=== PATIENT | female | born 1965 | race Caucasian/White ===

== ENCOUNTER → 2019-07-29 | Outpatient (REF) | payer SELFPAY ==
[2019-07-29 17:50] LABS: APPEARANCE, URINE CLOUDY (CLEAR); BACTERIA, URINE AUTO NEGATIVE (NEGATIVE); BILIRUBIN, URINE AUTO NEGATIVE (NEGATIVE); BLOOD, URINE BLOOD NEGATIVE (NEGATIVE); COLOR, URINE YELLOW (YELLOW); GLUCOSE, URINE (UA) AUTO NEGATIVE (NEGATIVE); KETONE, URINE AUTO NEGATIVE (NEGATIVE); LEUKOCYTE ESTERASE, URINE AUTO 3+ (NEGATIVE); NITRITE, URINE AUTO NEGATIVE (NEGATIVE); PROTEIN, URINE AUTO 1+ mg/dL (NEGATIVE); RBC, URINE AUTO 19 /HPF (0-3); SPECIFIC GRAVITY URINE AUTO 1.015 (1.002-1.035); SQUAMOUS EPITHELIAL CELL UR AU 0 /HPF (0-6); WBC, URINE AUTO TNTC /HPF (0-3)
== END ==
LOC: M LAB REF 17:07
PROVIDERS: ATTEND Physician Assistant Medical
DX: N39.0 Urinary tract infection, site not specified (principal)

== ENCOUNTER → 2019-09-09 | Outpatient (REF) | payer SELFPAY | LOC: M LAB REF 11:22 | PROVIDERS: ATTEND Physician Assistant Medical | DX: Z11.59 Encounter for screening for other viral diseases (principal) ==

== ENCOUNTER 2019-10-17 13:47 | Inpatient (IN) | payer OTHER, SELFPAY ==
[2019-10-17] VITALS (11 sets, daily range): BP systolic 85–135; BP diastolic 50–60
[~2019-10-17] VITALS: Ht 157.5 cm; Wt 81.0 kg
[2019-10-17] MEDS ORDERED: PRIL20TA2 PO (13:58)
[2019-10-17] MEDS ORDERED: NS 1,000 ML IV SCH (14:05)
[2019-10-17] MEDS ORDERED: FUROSEMIDE 40MG/4ML VIAL (J1940) IV ONE (14:15)
[2019-10-17 14:43] LABS: BASO % 0.1 % (0.0-1.0); EOS # 0.2 10^3/uL (0.0-0.5); EOS % 2.6 % (0.0-3.0); LYMPH # 1.4 10^3/uL (1.5-5.0); LYMPH % 16.4 % (24.0-44.0); MEAN CORPUSCULAR HEMOGLOBIN 15.1 pg (27.0-33.0); MEAN CORPUSCULAR HGB CONC 22.6 g/dl (32.0-36.5); MEAN CORPUSCULAR VOLUME 66.9 fl (80.0-96.0); MONO # 0.9 10^3/uL (0.0-0.8); MONO % 10.3 % (0.0-5.0); NEUTROPHILS # 5.9 10^3/uL (1.5-8.5); NEUTROPHILS % 69.9 % (36.0-66.0); PLATELET COUNT, AUTOMATED 243 10^3/uL (150-450); RED BLOOD COUNT 1.72 10^6/uL (4.00-5.40); WHITE BLOOD COUNT 8.4 10^3/uL (4.0-10.0)
[2019-10-17 14:52] LABS: HEMATOCRIT 11.5 % (36.0-47.0); HEMOGLOBIN 2.6 g/dl (12.0-15.5)
[2019-10-17 14:53] LABS: INR 1.6; PROTHROMBIN TIME 18.8 SECONDS (11.8-14.0)
[2019-10-17 14:58] LABS: ALBUMIN 3.1 GM/DL (3.2-5.2); ALT/SGPT 9 U/L (12-78); BILIRUBIN,DIRECT 0.5 MG/DL (0.0-0.2); BILIRUBIN,TOTAL 0.9 MG/DL (0.2-1.0); BLOOD UREA NITROGEN 27 MG/DL (7-18); CALCIUM LEVEL 8.6 MG/DL (8.5-10.1); CARBON DIOXIDE LEVEL 19 MEQ/L (21-32); CHLORIDE LEVEL 108 MEQ/L (98-107); CK-MB VALUE MASS < 1.0 NG/ML (<3.6); CPK CREATINE PHOSPHOKINASE 42 U/L (26-192); GLOMERULAR FILTRATION RATE 29.1 (>51); GLUCOSE, FASTING 120 MG/DL (70-100); MB/CK RELATIVE INDEX 2.38 (< OR =4); NT-PRO BNP 1368 PG/ML (<125); POTASSIUM SERUM 4.4 MEQ/L (3.5-5.1); SODIUM LEVEL 138 MEQ/L (136-145); TOTAL PROTEIN 7.5 GM/DL (6.4-8.2); TROPONIN I < 0.02 NG/ML (< 0.10)
--- NOTE | 2019-10-17 15:41 | REP ---
CHEST, SINGLE VIEW: Single view of the chest is performed. There is mild cardiomegaly. There is no acute infiltrate. The mediastinal silhouette is unchanged. IMPRESSION: No acute infiltrate. Mild cardiomegaly. Electronically Signed by Allan Barcenas MD 10/20/2019 09:44 A
[2019-10-17] MEDS ORDERED: THERTAB52 PO (15:47)
[2019-10-17] MEDS ORDERED: IBUP200T45 PO (15:47)
--- NOTE | 2019-10-17 17:08 | REP ---
CT ABDOMEN/PELVIS WITHOUT CONTRAST: CT abdomen/pelvis performed without oral or IV contrast. Sagittal and coronal reconstruction images are performed. The visualized lung bases, the vasculature appears somewhat engorged. There are small bilateral pleural effusions. There is mild cardiomegaly. There is a small pericardial effusion. The liver is grossly unremarkable. The patient has had a prior cholecystectomy with metallic clips in the gallbladder fossa. Spleen is grossly unremarkable. It is normal in size. Adrenal glands are normal. No gross pancreatic abnormality is seen. There is no hydroureteronephrosis bilaterally and no definite renal calculus. There is a cyst in the mid right kidney measuring 2.8 cm. There is no abdominal aortic aneurysm with mild atherosclerotic calcification. There is no adenopathy. There is no free air. I see no bowel wall thickening. The appendix is normal. There is mild free fluid scattered throughout the pelvis. Urinary bladder is not well distended and not well evaluated. No pelvic mass is seen. There are degenerative changes of the spine. There is a small right femoral hernia containing fat. There is some mild scattered soft tissue edema superficially. IMPRESSION: Mild cardiomegaly. Vascular congestion. Small pleural effusions bilaterally as well as small pericardial effusion. Mild free fluid in the pelvis. No evidence of bowel obstruction or free air. No evidence of adenopathy. Right femoral hernia contains fat. Electronically Signed by Allan Barcenas MD 10/20/2019 09:53 A
--- NOTE | 2019-10-17 17:23 | REPVR ---
PROCEDURE INFORMATION: Exam: CT Chest Without Contrast Exam date and time: 10/17/2019 4:45 PM Age: 54 years old Clinical indication: Condition or disease; Lung condition and disease; Pneumonia TECHNIQUE: Imaging protocol: Computed tomography of the chest without contrast. 3D rendering: MIP and/or 3D reconstructed images were created by the technologist. Radiation optimization: All CT scans at this facility use at least one of these dose optimization techniques: automated exposure control; mA and/or kV adjustment per patient size (includes targeted exams where dose is matched to clinical indication); or iterative reconstruction. COMPARISON: CR PORTABLE CHEST X-RAY 10/17/2019 2:29 PM FINDINGS: Thyroid: The bilateral thyroid lobes are unremarkable. Lungs: Bilateral posterior pulmonary partial passive atelectasis. Pleural space: Small right pleural effusion. Minimal left pleural effusion. No pneumothorax. Heart: Moderate pericardial effusion. Mild proximal LAD coronary artery calcifications. Aorta: Mild aortic valvular calcification is present. Moderate aortic arch and descending thoracic aortic atherosclerotic calcification without ectasia. Lymph nodes: No enlarged lymph nodes. Gallbladder and bile ducts: The gallbladder is surgically absent, with metallic clips in the gallbladder fossa. Bones/joints: Degenerative disk disease is present at mid-lower thoracic spine disk levels with kyphosis. Thoracic spine vertebral body marginal osteophytes are noted at multiple levels. Soft tissues: Unremarkable. Other findings: Streak artifact is present from the patient's arms at the side. IMPRESSION: 1. Moderate pericardial effusion. 2. Small right pleural effusion. 3. Minimal left pleural effusion. 4. Coronary atherosclerosis. 5. Prior cholecystectomy. 6. No specific evidence of pneumonia. Electronically signed by: Gerardo Juan On 10/17/2019 17:23:02 PM
--- NOTE | 2019-10-17 18:04 | HPEPDOC ---
[facility] Medical History & Physical Date of Admission Oct 17, 2019 Date of Service: Oct 17, 2019 History and Physical CHIEF COMPLAINT: Dizziness and dyspnea on admission HISTORY OF PRESENT ILLNESS: Ms. Flores presents to the ER with complaints of coughing, dizziness, ataxia, dyspnea on exertion, and generalized weakness. She states that she had not seen a healthcare provider in many years due to not having insurance. Today she did see her PCP who was able to diagnose her with severe anemia and was subsequently sent to the ER. Ms. Flores states that her first symptom was a cough productive of clear sputum which began last summer due to her seasonal allergies. She states that the cough is constant and has not progressed significantly since it began. She also states that it is worsened by laying flat or leaning back. She denies any blood tinge in this sputum. She then stated that her dizziness and ataxia and fatigue began about July of this year with a insidious onset and no inciting event. Around that time she also noticed that her legs began to swell and that she was unable to sleep laying flat without significant dyspnea. She now sleeps in a recliner at night and denies any history of paroxysmal nocturnal dyspnea. She denies any visual disturbances with her dizziness but rather seems to suggest that she has difficult ambulating with stability due to generalized weakness and fatigue. Additionally she states that beginning around July of this year she began having severe dyspnea on exertion in along with her leg swelling, orthopnea and cough. Finally she does report that she has be occasional stools with red blood noticed on her toilet paper for the past few months. PAST MEDICAL HISTORY: 1. Temporal lobe epilepsy 2. miscarriage 3. migraines PAST SURGICAL HISTORY: 1. Cholecystectomy 2. Uterine D/C w/ subsequent hemorrhage SOCIAL HISTORY: Marital status: Marries Resides in: [place] Employment: Unemployed Tobacco use: Denies Ever ETOH: Denies Ever Illicit drug use: Denies Ever IV drug use: Denies Ever FAMILY HISTORY: Father: of unknown cause - possibly complications of diabetes Mother: Noemi, marko ALLERGIES: Please see below. REVIEW OF SYSTEMS: CONSTITUTIONAL: Denies fevers, chills, weight loss/gain. + for fatigue HEENT: Denies hearing or vision changes. Denies upper respiratory tract symptoms. No tender lymphadenopathy CARDIOVASCULAR: No palpitations, chest pain, chest pressures RESPIRATORY: + for productive chronic cough, and dyspnea on exertion. GASTROINTESTINAL: + for intermittent hematochezia. Denies abdominal pain, constipation, diarrhea. GENITOURINARY: Denies dysuria, polyuria, anuria, blood in her urine NEUROLOGICAL: Denies any change in vision or hearing. Denies any focal muscle spasms or function/sensation loss. ENDOCRINE: Reports some cold intolerance. HOME MEDICATIONS: Please see below. PHYSICAL EXAMINATION: VITAL SIGNS: Temperature 97.4, pulse 108, respiratory rate 18, blood pressure 104/57, pulse oximetry 100% on room air. GENERAL APPEARANCE: Obese, extremely pale laying in bed in moderate distress HEENT: EOMI, atraumatic. + JVD above the angles of her mandible B/L. Facial pallor noted. No scleral icterus CARDIOVASCULAR: Tachycardic but sounds regular. No murmurs, rubs, gallops. LUNGS: Coarse crackles in Lung bases. Muffled lung sounds in both lungs R>L. ABDOMEN: Obese abdomen. Soft and nontender. No organomegaly noted EXTREMITIES: 3+ pitting edema up to just above her knees B/L. Lower extremities cool to touch with soft pulses. NEUROLOGICAL: No FNDs. CN-II-XII intact LABORATORY DATA: See below. IMAGING: CXR: No acute infiltrate. Mild cardiomegaly CT Abdomen and Pelvis: Mild cardiomegaly. Vascular congestion. Small pleural effusions bilaterally as well as small pericardial effusion. Mild free fluid in the pelvis. Chest CT: Moderate pericardial effusion. Small right pleural effusion. Minimal left pleural effusion. Coronary atherosclerosis. Prior cholecystectomy. No specific evidence of pneumonia MICROBIOLOGY: Please see below. ASSESSMENT: This is a 54 year old woman with a pmhx significant for micarriage and migraines who presented to the ER with 1 year of chronic cough productive of clear sputum, and subacute dyspnea on exertion, bilateral leg swelling, and orthopnea. On initial assessment she has profound JVD, and LE edema with crackles appreciated in her lung bases R>L. She was also found to be severely anemic with a Hgb of 2.3. She will be transfused with pRBCs as well as diuresed thoroughly. Initial imaging is negative for possible etiologies of her anemia which is suspected to be from a chronic slow bleed. PLAN: #SOB, multifactorial: 2/2 severe anemia and CHF exacerbation -Hgb 2.3: will begin transfusion with pRBCs 3 units -Chest CT shows r sided small pleural effusion w/ no pneumonia -paO2 99% on room air #Microcytic anemia: -Most likely due to GI bleed -Patient has not had a colonoscopy and patient endorses occasional red blood on her toilet paper -Initial imaging negative for a source, will consult GI to r/u GI source of bleeding -H&H Q6H -Fecal occult blood will be ordered #Acute CHF: -Will begin diuresis with furosemide 40 mg Q4H -lactate 5.9 and will likely improve upon diuresing -Patient's clinical picture shows a significant fluid overload -Will order Echo to qualify preserved vs reduce EF -Will start Metoprolol to bring HR into normal range #DAMEON: -Likely intrarenal and prerenal from intravascular blood loss -Patient has taken NSAIDS in the recent past as well -Will continue to monitor with CMPs #Asymptomatic Bacteruria: -U/A shows UTI but patient is asymptomatic -Patient does not meet SIRS criteria as of now, but will continue to monitor #DVT Prophylaxis: -Lovenox 40mg SC QD Vital Signs Vital Signs Date Time Temp Pulse Resp B/P (MAP) Pulse Ox O2 Delivery O2 Flow Rate FiO2 10/17/19 16:30 97.4 108 18 104/57 100 Room Air 10/17/19 14:38 100 Laboratory Data Labs 24H Laboratory Tests 2 10/17/19 14:14: Immature Granulocyte % (Auto) 0.7, Neutrophils (%) (Auto) 69.9H, Lymphocytes (%) (Auto) 16.4L, Monocytes (%) (Auto) 10.3H, Eosinophils (%) (Auto) 2.6, Basophils (%) (Auto) 0.1, Neutrophils # (Auto) 5.9, Lymphocytes # (Auto) 1.4L, Monocytes # (Auto) 0.9H, Eosinophils # (Auto) 0.2, Basophils # (Auto) 0.0, Nucleated Red Blood Cells % (auto) 0.6H, Anion Gap 11, Glomerular Filtration Rate 29.1L, Calcium Level 8.6, Total Bilirubin 0.9, Direct Bilirubin 0.5H, Aspartate Amino Transf (AST/SGOT) 25, Alanine Aminotransferase (ALT/SGPT) 9L, Alkaline Phosphatase 92, Total Creatine Kinase 42, Creatine Kinase MB < 1.0, Creatine Kinase MB Relative Index 2.38, Troponin I < 0.02, FD-Gka-K-Type Natriuretic Peptide 1368H, Total Protein 7.5, Albumin 3.1L, Albumin/Globulin Ratio 0.7L 10/17/19 14:22: Prothrombin Time 18.8H, Prothromb Time International Ratio 1.60, Lactic Acid Level 5.9*H 10/17/19 14:54: POC pH (Misc Panel) 7.465H, POC Base Excess (Misc Panel) -9.0L, POC Saturated Percent O2 (Misc) 99H, POC pO2 (Misc Panel) 115.0H, POC pCO2 (Misc Panel) 21.0L, POC HCO3 (Misc Panel) 15.2L, POC Total CO2 (Misc Panel) 16.0L 10/17/19 16:00: Urine Color YELLOW, Urine Appearance TURBIDH, Urine pH 5.0, Urine Specific [place] 1.009, Urine Protein 2+H, Urine Glucose (UA) NEGATIVE, Urine Ketones NEGATIVE, Urine Blood NEGATIVE, Urine Nitrite POSITIVEH, Urine Bilirubin NEGATIVE, Urine Urobilinogen 0.2, Urine Leukocyte Esterase 3+H, Urine WBC (Auto) TNTCH, Urine RBC (Auto) 19H, Urine Hyaline Casts (Auto) 0, Urine Bacteria (Auto) 3+H, Urine Squamous Epithelial Cells 0, Urine Renal Epithelial Cells 1, Urine Mucus (Auto) SMALL, Urine Sperm (Auto) CBC/BMP Laboratory Tests 10/17/19 14:14 Microbiology Microbiology 10/17/19 Urine Culture, Received Pending 10/17/19 Blood Culture, Received Pending 10/17/19 Respiratory Virus Panel (PCR) (TINY) - Final, Complete 10/17/19 Blood Culture, Received Pending Home Medications Scheduled Multivitamin,Therapeutic (Thera-Tabs) 1 Each Tablet, 1 TAB PO DAILY Omeprazole Magnesium (Prilosec Otc) 20 Mg Tablet.dr, 20 MG PO DAILY Scheduled PRN Ibuprofen (Ibu-200) 200 Mg Tablet, 400 MG PO Q6H PRN for PAIN Allergies Coded Allergies: carbamazepine (Verified Allergy, Severe, 10/17/19) phenytoin (Verified Allergy, Severe, 10/17/19) Sulfa (Sulfonamide Antibiotics) (Verified Allergy, Unknown, 10/17/19) rash A-FIB/CHADSVASC A-FIB History Current/History of A-Fib/PAF?: No Current PO Anticoag Therapy: No GME ATTESTATION GME ATTESTATION My faculty preceptor for this patient encounter was physically present during the encounter and was fully available. All aspects of the patient interview, examination, medical decision making process, and medical care plan development were reviewed and approved by the faculty preceptor. The faculty preceptor is aware and concurs with the plan as stated in the body of this note and will attest to such by his/her cosignature. ATTENDING NOTE Patient was admitted with profound anemia most likely secondary to chronic GI bleed. Also patient was found to have acute CHF. Patient will be treated with intensive diuresis and blood transfusion. I talked to Dr. Wiggins, he will proceed with colonoscopy and EGD after initial stabilization. Agree with student findings. MARIA ALEJANDRA EDDY OMS-3 Oct 17, 2019 17:59 STARR CEVALLOS DO Oct 17, 2019 18:51
[2019-10-17] MEDS: METOPROLOL TART 25 MG TABLET PO SCH (20:18)
[2019-10-17] MEDS: FUROSEMIDE 40MG/4ML VIAL (J1940) IV SCH (20:19)
[2019-10-17] MEDS ORDERED: guaiFENesin/CODEINE SYRUP 5 ML UDC PO PRN (22:00)
[2019-10-18] VITALS (18 sets, daily range): BP systolic 101–131; BP diastolic 51–63
[2019-10-18] MEDS: FUROSEMIDE 40MG/4ML VIAL (J1940) IV SCH ×6 (00:31→20:05)
[2019-10-18 01:21] LABS: HEMATOCRIT 22.2 % (36.0-47.0)
[2019-10-18 01:25] LABS: HEMOGLOBIN 6.3 g/dl (12.0-15.5)
[2019-10-18 01:43] LABS: MAGNESIUM LEVEL 2.5 MG/DL (1.8-2.4); PHOSPHORUS LEVEL 4.2 MG/DL (2.5-4.9); TROPONIN I < 0.02 NG/ML (< 0.10)
[2019-10-18 07:05] LABS: HEMATOCRIT 27.4 % (36.0-47.0); HEMOGLOBIN 8.6 g/dl (12.0-15.5); MEAN CORPUSCULAR HEMOGLOBIN 24.6 pg (27.0-33.0); MEAN CORPUSCULAR HGB CONC 31.4 g/dl (32.0-36.5); MEAN CORPUSCULAR VOLUME 78.5 fl (80.0-96.0); PLATELET COUNT, AUTOMATED 184 10^3/uL (150-450); RED BLOOD COUNT 3.49 10^6/uL (4.00-5.40)
[2019-10-18 07:40] LABS: ALT/SGPT 10 U/L (12-78); BILIRUBIN,TOTAL 3.2 MG/DL (0.2-1.0); BLOOD UREA NITROGEN 26 MG/DL (7-18); CALCIUM LEVEL 8.3 MG/DL (8.5-10.1); CARBON DIOXIDE LEVEL 24 MEQ/L (21-32); CHLORIDE LEVEL 106 MEQ/L (98-107); CHOLESTEROL LEVEL 81 MG/DL (<200); CHOLESTEROL RISK RATIO 4.764 (<5); CREATININE FOR GFR 1.62 MG/DL (0.55-1.30); GLUCOSE, FASTING 113 MG/DL (70-100); HDL CHOLESTEROL 17 MG/DL (>40); LDL CHOLESTEROL 47 MG/DL (<100); MAGNESIUM LEVEL 2.3 MG/DL (1.8-2.4); NON-HDL-C 64 MG/DL; POTASSIUM SERUM 3.3 MEQ/L (3.5-5.1); SODIUM LEVEL 139 MEQ/L (136-145); TOTAL PROTEIN 7.4 GM/DL (6.4-8.2); TRIGLYCERIDES LEVEL 84 MG/DL (<150); TROPONIN I < 0.02 NG/ML (< 0.10)
[2019-10-18 09:21] LABS: LDH LACTATE DEHYDROGENASE 209 U/L (84-246)
--- NOTE | 2019-10-18 09:30 | ECGEPIP ---
[facility] - ED Test Date: 2019-10-17 Pat Name: BRODY BURGER Department: Room: - Gender: Female [employer]: : 1965 Requested By: SOPHIA RANGEL Order Number: [id number] Reading MD: Kiel Pina Measurements Intervals [place] Rate: 109 P: NC: 0 QRS: 21 QRSD: 100 T: 83 QT: 329 QTc: 444 Interpretive Statements SINUS TACHYCARDIA NSTTW ABNORMALITIES NO PRIORS FOR COMPARISON Electronically Signed on 10-18-2019 9:30:41 EDT by Kiel Pina
[2019-10-18] MEDS: OMEPRAZOLE 20 MG CAP PO SCH (09:38)
[2019-10-18] MEDS: POTASSIUM CHLORIDE 10 MEQ SR TABLET PO SCH ×3 (09:38→20:03)
[2019-10-18] MEDS: METOPROLOL TART 25 MG TABLET PO SCH (09:38)
--- NOTE | 2019-10-18 10:37 | REP ---
COMPARISON: Portable exam obtained yesterday. Once again, there is cardiomegaly. The interstitial markings are diffusely increased on today's exam. There is a haziness throughout the pulmonary vascularity. There is minimal bilateral CP angle blunting, which has developed. There is no change in the osseous structures. IMPRESSION: CHF with possible small bilateral pleural effusions. Electronically Signed by Arnoldo Zuluaga DO 10/18/2019 10:43 A
[2019-10-18 13:09] LABS: HEMOGLOBIN 8.7 g/dl (12.0-15.5)
[2019-10-18 22:09] LABS: HEMATOCRIT 31.4 % (36.0-47.0)
[2019-10-18 22:35] LABS: BLOOD UREA NITROGEN 23 MG/DL (7-18); CALCIUM LEVEL 8.4 MG/DL (8.5-10.1); CARBON DIOXIDE LEVEL 26 MEQ/L (21-32); CHLORIDE LEVEL 105 MEQ/L (98-107); CREATININE FOR GFR 1.43 MG/DL (0.55-1.30); GLOMERULAR FILTRATION RATE 40.4 (>51); GLUCOSE, FASTING 109 MG/DL (70-100); POTASSIUM SERUM 3.6 MEQ/L (3.5-5.1); SODIUM LEVEL 138 MEQ/L (136-145); TROPONIN I < 0.02 NG/ML (< 0.10)
[2019-10-19] VITALS (7 sets, daily range): BP systolic 108–112; BP diastolic 58–63
[2019-10-19] MEDS: FUROSEMIDE 40MG/4ML VIAL (J1940) IV SCH ×5 (00:15→20:00)
[2019-10-19] MEDS: ACETAMINOPHEN TAB 650MG DOSE (2X325MG) PO PRN ×2 (03:52→13:38)
[2019-10-19 05:00] LABS: HEMATOCRIT 31.1 % (36.0-47.0); HEMOGLOBIN 9.9 g/dl (12.0-15.5)
--- NOTE | 2019-10-19 07:10 | ECHO ---
DATE OF STUDY: 10/18/2019 DATE OF : 1965 AGE: 54 REFERRING PROVIDER: Dr. Africa Haddad PATIENT LOCATION: Room 3225 REASON FOR STUDY: Pericardial effusion. 2-D COMMENTS: 1. Normal left ventricular size, wall thickness, and normal global left ventricular systolic function. The estimated left ventricular systolic ejection fraction is 60-65%. 2. Normal left atrium. Normal right atrium and right ventricle. 3. The atrial septum appeared to be normal without evidence of defect or shunt. 4. Normal aortic root. 5. A small to moderate pericardial effusion was noted around the heart, no evidence of cardiac tamponade. 6. Mildly calcified aortic valve with normal leaflet excursion. Mildly calcified mitral annulus with normal anterior mitral valve leaflet motion. Normal tricuspid valve, pulmonic valve. The proximal pulmonary artery branches also appeared to be normal. 7. The inferior vena cava was not visualized. DOPPLER: It detects mild mitral regurgitation, mild tricuspid regurgitation. The calculated pulmonary artery systolic pressure varies between 30-40 mmHg. Assessment of the left ventricular diastolic function appeared to be normal. IMPRESSION: 1. Normal global left ventricular systolic and diastolic function. 2. Aortic valve sclerosis with trivial aortic stenosis, but no aortic regurgitation. There was a maximum gradient of 11 mmHg across the aortic valve. 3. Mitral annulus calcification with mild mitral regurgitation. 4. Mild tricuspid regurgitation with mild pulmonary hypertension. 5. A small to moderate pericardial effusion was noted, no evidence of cardiac tamponade. MTDD
[2019-10-19] MEDS: CIPROFLOXACIN 250MG TAB PO SCH ×2 (08:39→16:59)
[2019-10-19] MEDS: POTASSIUM CHLORIDE 10 MEQ SR TABLET PO SCH ×3 (08:40→20:46)
[2019-10-19] MEDS: OMEPRAZOLE 20 MG CAP PO SCH (08:40)
--- NOTE | 2019-10-19 09:59 | IPN ---
DATE: 10/18/2019 SUBJECTIVE: Patient was afebrile overnight. Still with productive cough with white, thick sputum. No chills. Shortness of breath has improved. Patient is complaining of urinary frequency. Currently on intravenous Lasix. Diuresed 4 liters out since midnight. OBJECTIVE: PHYSICAL EXAMINATION: VITAL SIGNS: Temperature 98.3, pulse 71, respiratory rate 20, blood pressure 108/59, 98% on room air. GENERAL: Patient is awake, alert, oriented times three. No conversation dyspnea. No use of respiratory accessory muscles. Positive jugular venous distention (JVD). No thyromegaly. LUNGS: Clear to auscultation. No wheezing or rales. HEART: S1, S2, sinus rhythm. ABDOMEN: Obese, soft, nontender, nondistended. Positive bowel sounds. EXTREMITIES: Pitting edema 2+ to the sacrum. LABORATORY DATA: White count 8, hemoglobin 8.6, hematocrit 27, platelet count of 184. Sodium 139, potassium 3.3, chloride 106, bicarbonate 24, BUN 1.62, glucose of 113. Lactic acid of 2.2. Calcium 8.3. Total bilirubin of 3.2. Troponin less than 0.02. IMAGING STUDIES: Chest x-ray: Congestive heart failure (CHF) with layering effusions. ASSESSMENT AND PLAN: This is a 54-year-old female, admitted on 10/17/2019 with complaints of lower extremity edema, shortness of breath, and dizziness. Patient was found to have symptomatic anemia. Hemoglobin of 2.6. CURRENT ISSUES: 1. Symptomatic anemia with positive chronic gastrointestinal (GI) blood loss. Patient has been transfused a total of 5 units of red blood cells (RBC) with resultant increase in hemoglobin from 2.6 to 8.6. In light of congestive heart failure, we will attempt to get the hemoglobin greater than 9. She admits to having a history of reflux but never had any overt hematemesis, bright red blood per rectum, melena, or any black, tarry stools. Hemoccult stool has been checked. Patient is not medically stable to undergo endoscopy or colonoscopy due to active heart failure. 2. Congestive heart failure, new onset, unknown ejection fraction. Echocardiogram has been ordered. Patient is currently on Lasix 40 mg every 4 hours, strict intake and output, and daily weights. Continue on telemetry monitoring. 3. Premature ventricular contractions (PVCs). Patient's potassium was low. Supplement and repeat potassium, magnesium, ionized calcium. Replete as needed while she is being diuresed. 4. Acute kidney injury. Creatinine of 1.9 on admission, improved to 1.6. Currently being diuresed. Monitor for strict intake and output and daily weights. [place] catheter to monitor and for possible retention. 5. Obesity, body mass index (BMI) of 37.3, complicating care. 6. History of reflux. Continue on proton pump inhibitor (PPI) for now. 7. History of temporal lobe epilepsy and migraines. No acute complaints. [facility]
[2019-10-19 11:02] LABS: IONIZED CALCIUM 4.2 MG/DL (4.5-5.3)
[2019-10-19 11:10] LABS: HEMATOCRIT 30.9 % (36.0-47.0); HEMOGLOBIN 9.8 g/dl (12.0-15.5); MEAN CORPUSCULAR HEMOGLOBIN 25.2 pg (27.0-33.0); MEAN CORPUSCULAR HGB CONC 31.7 g/dl (32.0-36.5); MEAN CORPUSCULAR VOLUME 79.4 fl (80.0-96.0); PLATELET COUNT, AUTOMATED 171 10^3/uL (150-450); RED BLOOD COUNT 3.89 10^6/uL (4.00-5.40); WHITE BLOOD COUNT 9.9 10^3/uL (4.0-10.0)
[2019-10-19 12:11] LABS: BLOOD UREA NITROGEN 20 MG/DL (7-18); CALCIUM LEVEL 8.2 MG/DL (8.5-10.1); CARBON DIOXIDE LEVEL 29 MEQ/L (21-32); CHLORIDE LEVEL 103 MEQ/L (98-107); CK-MB VALUE MASS < 1.0 NG/ML (<3.6); CPK CREATINE PHOSPHOKINASE 50 U/L (26-192); CREATININE FOR GFR 1.39 MG/DL (0.55-1.30); GLOMERULAR FILTRATION RATE 41.8 (>51); GLUCOSE, FASTING 123 MG/DL (70-100); NT-PRO BNP 1379 PG/ML (<125); POTASSIUM SERUM 3.3 MEQ/L (3.5-5.1); SODIUM LEVEL 138 MEQ/L (136-145); TROPONIN I < 0.02 NG/ML (< 0.10)
[2019-10-20] MEDS: ACETAMINOPHEN TAB 650MG DOSE (2X325MG) PO PRN ×2 (00:34→04:40)
[2019-10-20] MEDS: FUROSEMIDE 40MG/4ML VIAL (J1940) IV SCH ×2 (02:00→09:30)
[2019-10-20] MEDS: CIPROFLOXACIN 250MG TAB PO SCH (05:52)
[2019-10-20 06:00] VITALS: BP 122/70
[2019-10-20 07:01] LABS: BASO % 0.5 % (0.0-1.0); EOS # 0.4 10^3/uL (0.0-0.5); EOS % 5.3 % (0.0-3.0); HEMATOCRIT 32.6 % (36.0-47.0); LYMPH # 1.7 10^3/uL (1.5-5.0); LYMPH % 20.4 % (24.0-44.0); MEAN CORPUSCULAR HEMOGLOBIN 25.4 pg (27.0-33.0); MEAN CORPUSCULAR HGB CONC 30.7 g/dl (32.0-36.5); MONO # 0.9 10^3/uL (0.0-0.8); MONO % 10.7 % (0.0-5.0); NEUTROPHILS % 61.6 % (36.0-66.0); PLATELET COUNT, AUTOMATED 170 10^3/uL (150-450); RED BLOOD COUNT 3.93 10^6/uL (4.00-5.40); WHITE BLOOD COUNT 8.1 10^3/uL (4.0-10.0)
[2019-10-20 07:36] LABS: BLOOD UREA NITROGEN 20 MG/DL (7-18); CALCIUM LEVEL 8.5 MG/DL (8.5-10.1); CARBON DIOXIDE LEVEL 27 MEQ/L (21-32); CHLORIDE LEVEL 105 MEQ/L (98-107); FREE THYROXINE INDEX 2.8 % (1.3-4.8); GLOMERULAR FILTRATION RATE 41.4 (>51); GLUCOSE, FASTING 101 MG/DL (70-100); POTASSIUM SERUM 4.3 MEQ/L (3.5-5.1); SODIUM LEVEL 137 MEQ/L (136-145); T UPTAKE 35 % (30-39); THYROXINE (T4) 8.1 UG/DL (4.5-12.0)
[2019-10-20] MEDS ORDERED: CIPR250T3 PO (07:50)
[2019-10-20] MEDS ORDERED: LASI40TA9 PO (07:50)
[2019-10-20] MEDS ORDERED: BACI1CAP PO (07:51)
--- NOTE | 2019-10-20 08:42 | REP ---
Clinical: Shortness of breath . Comparison: 10/18/2019 . Technique: PA and lateral. Findings: The mediastinum and cardiac silhouette are normal. The lung moreno are clear and without acute consolidation, effusion, or pneumothorax. The skeletal structures are intact and normal. Impression: 1. No acute cardiopulmonary process. Electronically Signed by Axel Gonzalez MD 10/20/2019 08:33 A
[2019-10-20] MEDS: POTASSIUM CHLORIDE 10 MEQ SR TABLET PO SCH (09:31)
[2019-10-20] MEDS: OMEPRAZOLE 20 MG CAP PO SCH (09:31)
[2019-10-20 09:32] VITALS: BP 107/71
--- NOTE | 2019-10-20 09:32 | IPN ---
DATE: 10/19/2019 Patient says that her breathing is much improved. She diuresed 8.6 liters out yesterday and 2 liters from this morning. Creatinine is stable at 1.39. Potassium is low at 3.3, supplemented this morning with 40 mEq three times a day. Patient had urinary frequency yesterday. Klebsiella pneumoniae was found in urine culture. She is currently on Cipro. She denies any chest pain, pressure, or tightness. Complains of weakness, some dizziness, and dyspnea on exertion when she ambulates. Since blood transfusion this has improved. She is status post 6 units of red blood cells (RBC) transfusion. Denies bright red blood per rectum, melena, or black tarry stools. No fever or chills or changes in vision. PHYSICAL EXAMINATION: VITAL SIGNS: Temperature 98.7, pulse 80, respiratory rate 17, blood pressure 109/62, 91% on room air. GENERALLY: Patient is awake, alert, oriented times three. No conversational dyspnea. No pallor, icterus, or jaundice. Patient has prominent ophthalmopathy. Need to rule out Graves' disease. LUNGS: Diminished crackles bilaterally. HEART: S1, S2, sinus rhythm. No murmurs, rubs, or gallops. ABDOMEN: Obese, soft, nontender, nondistended. Positive bowel sounds. EXTREMITIES: 2+ pitting edema to the sacrum. LABORATORY DATA: Reviewed, notable for hemoglobin 9.8, from admission hemoglobin of 2.6, creatinine of 1.39, from admission creatinine of 1.90, and potassium of 3.3. IMAGING STUDIES: Chest x-ray 10/18/2019: Congestive heart failure (CHF) with small bilateral pleural effusions. ASSESSMENT AND PLAN: This is a 54-year-old female admitted on 10/17/2019 with complaints of lower extremity edema, shortness of breath, and dizziness, found to have symptomatic anemia with hemoglobin of 2.6 but denied any overt gastrointestinal (GI) bleed, without hematemesis, coffee-ground emesis, bright red blood per rectum, melena, or black tarry stool. Patient says that she has a history of some reflux but never had an EGD or prior history of gastrointestinal (GI) bleed in the past. She denies any nonsteroidal anti-inflammatory use. IMPRESSION: 1. Symptomatic anemia with positive chronic gastrointestinal (GI) blood loss. Patient has been transfused a total of 6 units red blood cells (RBC) with presenting hemoglobin of 2.6 and current hemoglobin of 9.9. 2. Congestive heart failure, acute onset, with preserved systolic function, ejection fraction (EF) of 60-65%. Patient's heart failure was probably brought on by severe symptomatic anemia. Echocardiogram has been reviewed. She has been on Lasix 40 IV every 4 hours, strict intake and output, daily weights, and fluid restriction with improvement in her creatinine from 1.9 on admission to 1.4 currently. Will continue to monitor patient's metabolic panel for a worsening azotemia but will ease up on the Lasix from every 4 hours to every 6 hours. Continue with fluid restriction until patient is euvolemic. Admission weight was 92.5 kg, no significant change. BNP today is 1379, unchanged from previous. 3. Symptomatic urinary tract infection. Urine culture with Klebsiella pneumoniae present on admission. Patient is currently on renally dosed Cipro. 4. Acute kidney injury. Presenting creatinine of 1.9 most likely due to poor circulating volume with congestive heart failure. Currently being diuresed and monitoring for worsening azotemia. Strict intake and output. Avoid further nephrotoxins. Renally dose all medications. 5. Questionable thyroid ophthalmopathy. Check thyroid function tests. May be contributing to patient's heart failure. If truly hypothyroid, may need to supplement.
[2019-10-20 10:25] LABS: CK-MB VALUE MASS < 1.0 NG/ML (<3.6); CPK CREATINE PHOSPHOKINASE 34 U/L (26-192); MB/CK RELATIVE INDEX 2.94 (< OR =4); NT-PRO BNP 991 PG/ML (<125); TROPONIN I < 0.02 NG/ML (< 0.10)
[2019-11-28] MEDS ORDERED: FERR325T3 PO (15:35)
[2019-11-28] MEDS ORDERED: FURO40TA2 PO (15:35)
[2019-12-05] MEDS ORDERED: PANT40TA29 PO (14:29)
[2019-12-05] MEDS ORDERED: MULTCAP PO (15:09)
[2019-12-05] MEDS ORDERED: NITR-67 PO (23:30)
== END 2019-10-20 12:40 | disposition home health service (06) | DRG 253 ==
LOC: M ED 13:47 → M ED INP 16:25 → ENRESERV 17:32 → M PCU 17:52 → M MSPAV 10-19 00:35
PROVIDERS: ADMIT Internal Medicine; ATTEND General Practice
PROC: 30233N1 Transfusion of Nonautologous Red Blood Cells into Peripheral Vein, Percutaneous Approach (ICD-10-PCS; principal; 2019-10-17)
DX: K92.2 Gastrointestinal hemorrhage, unspecified (principal); N17.9 Acute kidney failure, unspecified; I50.9 Heart failure, unspecified; G43.909 Migraine, unspecified, not intractable, without status migrainosus; G40.909 Epilepsy, unspecified, not intractable, without status epilepticus; Z88.2 Allergy status to sulfonamides; Z88.8 Allergy status to other drugs, medicaments and biological substances; E66.9 Obesity, unspecified; Z68.37 Body mass index [BMI] 37.0-37.9, adult; K21.9 Gastro-esophageal reflux disease without esophagitis; N39.0 Urinary tract infection, site not specified; D62 Acute posthemorrhagic anemia

== ENCOUNTER → 2019-11-26 | Outpatient (CLI) | payer OTHER ==
[~2019-11-26] MED LIST: BACI1CAP PO; CIPR250T3 PO; FERR325T3 PO; FURO40TA2 PO; IBUP200T45 PO; LASI40TA9 PO; MULTCAP PO; NITR-67 PO; PANT40TA29 PO; PRIL20TA2 PO; THERTAB52 PO
== END ==
LOC: M LABSMTC 09:58
PROVIDERS: ATTEND Anesthesiology
DX: Z03.818 Encounter for observation for suspected exposure to other biological agents ruled out (principal); Z11.59 Encounter for screening for other viral diseases

== ENCOUNTER 2019-12-01 12:13 | Day surgery (SDC) | payer OTHER ==
[~2019-12-01] VITALS: Ht 157.5 cm; Wt 78.9 kg
[~2019-12-01 12:13] MED LIST changes: +LIDOCAINE 2% 100MG/5ML SDV (FOR ANES.) As Ordered ONE; -MULTCAP PO; -NITR-67 PO; -PANT40TA29 PO; +propofoL 200 MG/20 ML VIAL As Ordered ONE
[2019-12-01] MEDS ORDERED: NS 1,000 ML IV ONE ×2 (13:15→14:45)
[2019-12-01] MEDS ORDERED: propofoL 200 MG/20 ML VIAL As Ordered ONE (13:29)
[2019-12-01] MEDS ORDERED: ONDANSETRON 4MG/2ML VIAL As Ordered ONE (13:48)
[2019-12-01 14:40] VITALS: BP 121/64
[2019-12-05] MEDS ORDERED: PANT40TA29 PO (14:29)
[2019-12-05] MEDS ORDERED: MULTCAP PO (15:09)
[2019-12-05] MEDS ORDERED: NITR-67 PO (23:30)
--- NOTE | 2019-12-10 11:31 | ROOR ---
Patient Name: Rachell Flores Procedure Date: 12/01/2019 10:09 AM Date of : 1965 Age: 54 Room: [facility] Gender: Female Note Status: Finalized Procedure: Colonoscopy Indications: Iron deficiency anemia Providers: Esequiel Wiggins MD Referring MD: Marisela GAMBINO MD Requesting Provider: Medicines: Monitored Anesthesia Care Complications: No immediate complications. Procedure: Pre-Anesthesia Assessment: - Prior to the procedure, a History and Physical was performed, and patient medications and allergies were reviewed. The patient is competent. The risks and benefits of the procedure and the sedation options and risks were discussed with the patient. All questions were answered and informed consent was obtained. Patient identification and proposed procedure were verified by the physician, the nurse and the anesthesiologist in the procedure room. Mental Status Examination: alert and oriented. Airway Examination: normal oropharyngeal airway and neck mobility. Respiratory Examination: clear to auscultation. CV Examination: normal. Prophylactic Antibiotics: The patient does not require prophylactic antibiotics. Prior Anticoagulants: The patient has taken no previous anticoagulant or antiplatelet agents. ASA Grade Assessment: II - A patient with mild systemic disease. After reviewing the risks and benefits, the patient was deemed in satisfactory condition to undergo the procedure. The anesthesia plan was to use monitored anesthesia care (MAC). Immediately prior to administration of medications, the patient was re-assessed for adequacy to receive sedatives. The heart rate, respiratory rate, oxygen saturations, blood pressure, adequacy of pulmonary ventilation, and response to care were monitored throughout the procedure. The physical status of the patient was re-assessed after the procedure. The colonoscopy was performed without difficulty. The patient tolerated the procedure well. The quality of the bowel preparation was good. The ileocecal valve, appendiceal orifice, and rectum were photographed. The Colonoscope was introduced through the anus and advanced to the terminal ileum, with identification of the appendiceal orifice and IC valve. Scope insertion time was 5 minutes. Scope withdrawal time was 9 minutes. The total duration of the procedure was 14 minutes. Findings: The perianal and digital rectal examinations were normal. The terminal ileum appeared normal. Non-bleeding external and internal hemorrhoids were found during retroflexion. The hemorrhoids were large. Impression: - The examined portion of the ileum was normal. - Non-bleeding external and internal hemorrhoids. - No specimens collected. Recommendation: - Patient has a contact number available for emergencies. The signs and symptoms of potential delayed complications were discussed with the patient. Return to normal activities tomorrow. Written discharge instructions were provided to the patient. - Clear liquid diet today, then advance as tolerated to high fiber diet and low sodium diet. - Continue present medications. - Follow the recommendations as per the other procedure note. - Repeat colonoscopy in 10 years for screening purposes. - Return to GI clinic in [facility] (address [address], [address], [place] [address]) in 4 -- 6 weeks. Please call GI clinic @ [phone] for apppointment date and time. - Check hemogram with white blood cell count and platelets and iron studies in 2 months. - Return to primary care physician. Esequiel Wiggins MD Esequiel Wiggins MD 12/01/2019 2:23:16 PM Number of Addenda: 0 Note Initiated On: 12/01/2019 10:09 AM Estimated Blood Loss: Estimated blood loss was minimal.
--- NOTE | 2019-12-10 11:31 | ROOR ---
Patient Name: Rachell Flores Procedure Date: 12/01/2019 10:08 AM Date of : 1965 Age: 54 Room: [facility] Gender: Female Note Status: Finalized Procedure: Upper GI endoscopy Indications: Iron deficiency anemia Providers: Esequiel Wiggins MD Referring MD: Marisela GAMBINO MD Requesting Provider: Medicines: Monitored Anesthesia Care Complications: No immediate complications. Procedure: Pre-Anesthesia Assessment: - Prior to the procedure, a History and Physical was performed, and patient medications and allergies were reviewed. The patient is competent. The risks and benefits of the procedure and the sedation options and risks were discussed with the patient. All questions were answered and informed consent was obtained. Patient identification and proposed procedure were verified by the physician, the nurse and the anesthesiologist in the procedure room. Mental Status Examination: alert and oriented. Airway Examination: normal oropharyngeal airway and neck mobility. Respiratory Examination: clear to auscultation. CV Examination: normal. Prophylactic Antibiotics: The patient does not require prophylactic antibiotics. Prior Anticoagulants: The patient has taken no previous anticoagulant or antiplatelet agents. ASA Grade Assessment: II - A patient with mild systemic disease. After reviewing the risks and benefits, the patient was deemed in satisfactory condition to undergo the procedure. The anesthesia plan was to use monitored anesthesia care (MAC). Immediately prior to administration of medications, the patient was re-assessed for adequacy to receive sedatives. The heart rate, respiratory rate, oxygen saturations, blood pressure, adequacy of pulmonary ventilation, and response to care were monitored throughout the procedure. The physical status of the patient was re-assessed after the procedure. The upper GI endoscopy was accomplished without difficulty. The patient tolerated the procedure well. The Endoscope was introduced through the mouth, and advanced to the second part of duodenum. Findings: One column of non-bleeding large (> 5 mm) varices were found in the lower third of the esophagus,. They were 8 mm in largest diameter. No stigmata of recent bleeding were evident and red earl signs were present. One band was successfully placed with complete eradication, resulting in deflation of varices. There was no bleeding during and at the end of the procedure. 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 Focal radiofrequency ablation of gastric antral vascular ectasia in the gastric antrum was performed. With the endoscope in place, the position and extent of the abnormal mucosa and appropriate anatomic landmarks were noted. The abnormal mucosa was irrigated with water. The radiofrequency channel ablation catheter was introduced through the endoscope working channel. The endoscope with the ablation catheter was advanced to the areas of abnormal mucosa. The endoscope with the channel ablation catheter was positioned under direct visualization so that the catheter was placed in contact with the surface of the abnormal mucosa. Energy was applied once at 12 J/cm2. Ablation was repeated in a likewise fashion to all visible abnormal mucosa. The channel ablation catheter was then removed through the endoscope working channel, and the ablation catheter was cleaned. The endoscope was left in place. The ablation zone was cleaned of coagulative debris. The ablation catheter was reinserted into the endoscope working channel. A second round of ablation was then performed. Energy was applied once at 12 J/cm2 to retreat the areas of abnormal mucosa that had been treated with the first series of ablation. The ablation catheter was removed through the endoscope working channel. The areas where abnormal mucosa had been ablated were examined. Areas of abnormal mucosa appeared completely ablated. Whitish changes of ablated mucosa were present. No gross lesions were noted in the duodenal bulb, in the second portion of the duodenum and in the area of the papilla. Impression: - Non-bleeding large (> 5 mm) esophageal varices. Completely eradicated. Banded. - Gastric antral vascular ectasia without bleeding. Treated with radiofrequency ablation. - No gross lesions in the duodenal bulb, in the second portion of the duodenum and in the area of the papilla. - No specimens collected. Recommendation: - Patient has a contact number available for emergencies. The signs and symptoms of potential delayed complications were discussed with the patient. Return to normal activities tomorrow. Written discharge instructions were provided to the patient. - Clear liquid diet today, then advance as tolerated to high fiber diet and low sodium diet. - Continue present medications. - Use Protonix (pantoprazole) 40 mg PO twice daily - to be taken in morning (1/2 hour before breakfast) and at bedtime ( atleast 3 hours after last meal) for 6 weeks. - Use sucralfate suspension 1 gram PO QID. - Recommend an iron supplement for 3 months. - Check hemogram with white blood cell count and platelets and Iron studies in 2 months. - Return to GI clinic in Health system (address [address], [address], [place] [address]) in 4 -- 6 weeks. Please call GI clinic @ [phone] for apppointment date and time. - Return to primary care physician. Esequiel Wiggins MD Esequiel Wiggins MD 12/01/2019 2:41:10 PM Electronically signed by Esequiel Wiggins MD Number of Addenda: 0 Note Initiated On: 12/01/2019 10:08 AM Estimated Blood Loss: Estimated blood loss was minimal.
== END 2019-12-01 15:21 | disposition home or self-care (01) ==
LOC: M OPP 12:13
PROVIDERS: ATTEND Internal Medicine Gastroenterology
DX: K64.8 Other hemorrhoids (principal); D50.9 Iron deficiency anemia, unspecified; I85.00 Esophageal varices without bleeding; K31.819 Angiodysplasia of stomach and duodenum without bleeding; Z88.2 Allergy status to sulfonamides; Z88.8 Allergy status to other drugs, medicaments and biological substances
CPT/HCPCS: 43255; 45378; J2405

== ENCOUNTER → 2019-12-05 | Outpatient (CLI) | payer OTHER ==
[~2019-12-05] MED LIST changes: -LIDOCAINE 2% 100MG/5ML SDV (FOR ANES.) As Ordered ONE; +MULTCAP PO; +NITR-67 PO; +PANT40TA29 PO; -propofoL 200 MG/20 ML VIAL As Ordered ONE
[2019-12-05 11:49] LABS: BASO % 0.6 % (0.0-1.0); EOS # 0.2 10^3/uL (0.0-0.5); EOS % 2.5 % (0.0-3.0); HEMATOCRIT 22.7 % (36.0-47.0); LYMPH # 1.5 10^3/uL (1.5-5.0); LYMPH % 21.9 % (24.0-44.0); MEAN CORPUSCULAR HEMOGLOBIN 25.1 pg (27.0-33.0); MEAN CORPUSCULAR HGB CONC 27.3 g/dl (32.0-36.5); MEAN CORPUSCULAR VOLUME 91.9 fl (80.0-96.0); MONO # 0.5 10^3/uL (0.0-0.8); MONO % 7.5 % (0.0-5.0); NEUTROPHILS # 4.4 10^3/uL (1.5-8.5); NEUTROPHILS % 66.2 % (36.0-66.0); PLATELET COUNT, AUTOMATED 258 10^3/uL (150-450); RED BLOOD COUNT 2.47 10^6/uL (4.00-5.40); WHITE BLOOD COUNT 6.7 10^3/uL (4.0-10.0)
[2019-12-05 12:13] LABS: CREATININE FOR GFR 1.26 MG/DL (0.55-1.30); GLOMERULAR FILTRATION RATE 46.8 (>51); PERCENT SATURATION 3.2 % (13.2-45.0)
[2019-12-05 12:36] LABS: HEMOGLOBIN 6.2 g/dl (12.0-15.5)
== END ==
LOC: M LAB 10:19
PROVIDERS: ATTEND Internal Medicine Gastroenterology
DX: D50.9 Iron deficiency anemia, unspecified (principal)

== ENCOUNTER → 2019-12-19 | Outpatient (REF) | payer OTHER ==
[2019-12-19 14:25] LABS: HEPATITIS A ANTIBODY IGM NEGATIVE (NEGATIVE); HEPATITIS B CORE ANTIBODY IGM NEGATIVE (NEGATIVE); HEPATITIS B SURFACE ANTIGEN NEGATIVE (NEGATIVE); HEPATITIS C VIRUS ABY INDEX 0.2 INDEX (<0.8)
== END ==
LOC: M LAB REF 12:09
PROVIDERS: ATTEND Internal Medicine
DX: K74.69 Other cirrhosis of liver (principal)

== ENCOUNTER → 2019-12-30 | Outpatient (REF) | payer OTHER ==
[2019-12-30 14:31] LABS: FERRITIN 32 NG/ML (8-252); FOLATE > 24.0 NG/ML; IRON (FE) 36 UG/DL (50-170); PERCENT SATURATION 7.5 % (13.2-45.0); TOTAL IRON BINDING CAPACITY 479 UG/DL (250-450); VITAMIN B12 LEVEL 676 PG/ML
[2020-01-02 05:07] LABS: ANTI-MITOCHONDRIAL ANTIBODY <20.0 Units (0.0-20.0); ANTI-PARIETAL CELL ANTIBODY 1.8 Units (0.0-20.0); ANTI-SMOOTH MUSCLE ANTIBODY 5 Units (0-19); ANTINUCLEAR ANTIBODIES DIRECT Negative (Negative); LIVER-KIDNEY MICROSOMAL ABY <20.1 Units (0.0-20.0)
== END ==
LOC: M LAB REF 12:15
PROVIDERS: ATTEND Internal Medicine
DX: D50.9 Iron deficiency anemia, unspecified (principal); K64.8 Other hemorrhoids; K31.819 Angiodysplasia of stomach and duodenum without bleeding

== ENCOUNTER → 2020-03-03 | Outpatient (CLI) | payer OTHER ==
[~2020-03-03] MED LIST changes: +FERR324T2 PO; +PROP60CA PO; +SPIR-10 PO; +SUCR1TAB56 PO; +[UNRECOGNIZED DRUG - CODE] PO
== END ==
LOC: M LABSMTC 11:00
PROVIDERS: ATTEND Anesthesiology
DX: Z01.812 Encounter for preprocedural laboratory examination (principal); Z20.828 Contact with and (suspected) exposure to other viral communicable diseases

== ENCOUNTER 2020-03-08 14:08 | Day surgery (SDC) | payer OTHER ==
[~2020-03-08] VITALS: Ht 157.5 cm; Wt 82.1 kg
[~2020-03-08 14:08] MED LIST changes: +NS 1,000 ML IV ONE
[2020-03-08] MEDS ORDERED: propofoL 200 MG/20 ML VIAL As Ordered ONE ×3 (14:58→15:48)
[2020-03-08] MEDS ORDERED: LIDOCAINE 2% 100MG/5ML SDV (FOR ANES.) As Ordered ONE (14:59)
[2020-03-08 16:20] VITALS: BP 112/66
--- NOTE | 2020-03-08 17:01 | ROOR ---
Patient Name: Rachell Flores Procedure Date: 03/08/2020 3:25 PM Date of : 1965 Age: 54 Room: [facility] Gender: Female Note Status: Finalized Procedure: Upper GI endoscopy Indications: Iron deficiency anemia secondary to chronic blood loss, Iron deficiency anemia Providers: Esequiel Wiggins MD Referring MD: Marisela GAMBINO MD Requesting Provider: Medicines: Monitored Anesthesia Care Complications: No immediate complications. Procedure: Pre-Anesthesia Assessment: - Prior to the procedure, a History and Physical was performed, and patient medications and allergies were reviewed. The patient is competent. The risks and benefits of the procedure and the sedation options and risks were discussed with the patient. All questions were answered and informed consent was obtained. Patient identification and proposed procedure were verified by the physician, the nurse and the anesthesiologist in the procedure room. Mental Status Examination: normal. Airway Examination: normal oropharyngeal airway and neck mobility. Respiratory Examination: clear to auscultation. CV Examination: normal. Prophylactic Antibiotics: The patient does not require prophylactic antibiotics. Prior Anticoagulants: The patient has taken no previous anticoagulant or antiplatelet agents. ASA Grade Assessment: II - A patient with mild systemic disease. After reviewing the risks and benefits, the patient was deemed in satisfactory condition to undergo the procedure. The anesthesia plan was to use monitored anesthesia care (MAC). Immediately prior to administration of medications, the patient was re-assessed for adequacy to receive sedatives. The heart rate, respiratory rate, oxygen saturations, blood pressure, adequacy of pulmonary ventilation, and response to care were monitored throughout the procedure. The physical status of the patient was re-assessed after the procedure. The Endoscope was introduced through the mouth, and advanced to the second part of duodenum. The upper GI endoscopy was accomplished without difficulty. The patient tolerated the procedure well. Findings: Two columns of non-bleeding grade I, small (< 5 mm) varices were found in the lower third of the esophagus,. No stigmata of recent bleeding were evident and no red earl signs were present. Scarring from prior treatment was visible. Multiple angioectasias with stigmata of recent bleeding were found in the gastric body and in the gastric antrum. Focal radiofrequency ablation of gastric antral vascular ectasia in the stomach was performed. With the endoscope in place, the position and extent of the abnormal mucosa and appropriate anatomic landmarks were noted. The radiofrequency channel ablation catheter was introduced through the endoscope working channel. The endoscope with the ablation catheter was advanced to the areas of abnormal mucosa. The endoscope with the channel ablation catheter was positioned under direct visualization so that the catheter was placed in contact with the surface of the abnormal mucosa. Energy was applied twice at 12 J/cm2. Ablation was repeated in a likewise fashion to all visible abnormal mucosa. The channel ablation catheter was then removed through the endoscope working channel, and the ablation catheter was cleaned. The endoscope was left in place. The ablation zone was cleaned of coagulative debris. The ablation catheter was removed through the endoscope working channel. The areas where abnormal mucosa had been ablated were examined. Whitish changes of ablated mucosa were present. The endoscope was then removed. The duodenal bulb and second portion of the duodenum were normal. Impression: - Non-bleeding grade I and small (< 5 mm) esophageal varices. - Multiple recently bleeding angioectasias in the stomach. Treated with radiofrequency ablation. - Normal duodenal bulb and second portion of the duodenum. - No specimens collected. Recommendation: - Patient has a contact number available for emergencies. The signs and symptoms of potential delayed complications were discussed with the patient. Return to normal activities tomorrow. Written discharge instructions were provided to the patient. - High fiber diet. - Continue present medications. - Await pathology results. - Return to GI clinic in 2 weeks. - Return to primary care physician. Procedure Code(s): --- Professional --- 26910, Esophagogastroduodenoscopy, flexible, transoral; with control of bleeding, any method Diagnosis Code(s): --- Professional --- I85.00, Esophageal varices without bleeding K31.811, Angiodysplasia of stomach and duodenum with bleeding D50.0, Iron deficiency anemia secondary to blood loss (chronic) D50.9, Iron deficiency anemia, unspecified CPT copyright 2019 [employer]. All rights reserved. The codes documented in this report are preliminary and upon experience planning strategist review may be revised to meet current compliance requirements. Esequiel Wiggins MD Esequiel Wiggins MD 03/08/2020 5:00:38 PM Electronically signed by Esequiel Wiggins MD Number of Addenda: 0 Note Initiated On: 03/08/2020 3:25 PM Estimated Blood Loss: Estimated blood loss was minimal.
== END 2020-03-08 17:02 | disposition home or self-care (01) ==
LOC: M OPP 14:08
PROVIDERS: ATTEND Internal Medicine Gastroenterology
DX: I85.00 Esophageal varices without bleeding (principal); K31.811 Angiodysplasia of stomach and duodenum with bleeding; D50.0 Iron deficiency anemia secondary to blood loss (chronic); K74.60 Unspecified cirrhosis of liver; Z88.2 Allergy status to sulfonamides; Z88.8 Allergy status to other drugs, medicaments and biological substances

== ENCOUNTER → 2020-04-12 | Outpatient (REF) | payer OTHER ==
[~2020-04-12] MED LIST changes: -NS 1,000 ML IV ONE
[2020-04-12 12:23] LABS: INR 1.09; PROTHROMBIN TIME 14.3 SECONDS (12.5-14.3)
[2020-04-12 12:24] LABS: PARTIAL THROMBOPLASTIN TIME 30.9 SECONDS (24.2-38.5)
[2020-04-12 12:51] LABS: PERCENT SATURATION 24.3 % (13.2-45.0)
== END ==
LOC: M LAB REF 10:53
PROVIDERS: ATTEND Internal Medicine
DX: I85.00 Esophageal varices without bleeding (principal)

== ENCOUNTER → 2020-04-19 | Outpatient (CLI) | payer OTHER ==
--- NOTE | 2020-04-19 08:40 | REP ---
INDICATION: ESPHAGEAL VARICES W/OUT BLEEDING TECHNIQUE: Real time B-mode becerra scale ultrasound examination using curved array transducer followed by color Doppler evaluation of the hepatic vasculature. FINDINGS: Liver demonstrates coarsened increased echotexture without focal hepatic lesion identified and no hepatomegaly. Doppler interrogation of the hepatic vasculature demonstrates normal size to the main portal vein at 12 mm diameter and normal hepatopetal flow direction with normal velocities and wave patterns. Main portal vein: 12 cm/sec. Right portal vein: 18 cm/sec Left portal vein: 14 cm/sec Hepatic artery: 92 centimeters/seconds; RI: 0.74 Splenic vein: 10.3 cm/sec Spleen, and visualized pancreas are normal in contour, size, echogenicity, and overall appearance. No focal splenic or pancreatic lesions are identified. Evidence for prior cholecystectomy. Common bile duct is normal at 4.8 mm. The bilateral kidneys are normal in reniform shape with increased central sinus fat suggesting chronic renal disease. No hydronephrosis appreciated. Right kidney measures 11.0 x 5.2 x 3.5 cm and includes 3.9 cm simple cyst. Left kidney measures 10.5 x 4.5 x 4.3 cm and appears normal. Abdominal aorta is obscured by bowel gas. No obvious ascites. IMPRESSION: 1. Findings suggesting hepatocellular disease without focal hepatic lesion identified. 2. 3.9 cm simple right renal cyst. 3. Normal flow characteristics to the portal venous system. <Electronically signed by Axel Gonzalez > 04/19/20 0837
== END ==
LOC: M RAD 06:43
PROVIDERS: ATTEND Internal Medicine Gastroenterology
DX: K74.60 Unspecified cirrhosis of liver (principal); I85.10 Secondary esophageal varices without bleeding; N28.1 Cyst of kidney, acquired

== ENCOUNTER → 2020-08-13 | Outpatient (REF) | payer OTHER | LOC: M LAB REF 12:01 | PROVIDERS: ATTEND Internal Medicine | DX: K72.90 Hepatic failure, unspecified without coma (principal); K75.81 Nonalcoholic steatohepatitis (NASH) ==

== ENCOUNTER → 2020-08-30 | Outpatient (REF) | payer OTHER ==
[2020-08-30 12:43] LABS: TOTAL VOLUME, URINE 1350 ML
[2020-08-30 13:36] LABS: URINE TOTAL PROTEIN < 5.0 MG/DL (0-12)
== END ==
LOC: M LAB REF 12:37
PROVIDERS: ATTEND Internal Medicine Gastroenterology
DX: K83.8 Other specified diseases of biliary tract (principal); D50.0 Iron deficiency anemia secondary to blood loss (chronic); R63.5 Abnormal weight gain

== ENCOUNTER → 2020-09-06 | Outpatient (REF) | payer OTHER | LOC: M LAB REF 16:24 | PROVIDERS: ATTEND Internal Medicine | DX: K75.81 Nonalcoholic steatohepatitis (NASH) (principal) ==

== ENCOUNTER → 2020-09-27 | Outpatient (CLI) | payer OTHER ==
[~2020-09-27] MED LIST changes: +PROHANCE 279.3MG/ML 15ML VIAL As Ordered ONE; +PROHANCE 279.3MG/ML 5ML VIAL As Ordered ONE
--- NOTE | 2020-09-28 10:10 | REP ---
INDICATION: K83.8- OTHER SPECIFIED DISEASES OF BILIARY TRACT. COMPARISON: None. TECHNIQUE: Pre and post contrast 3T MRI was performed utilizing various sequences. Gadolinium utilized: 19 cc of ProHance. MIP reformatted 3-D images of the common bile duct and pancreatic duct were obtained along with source images in the axial and coronal scan planes. FINDINGS: The maximal dimension of the common bile duct is 8.5 mm. There is an abrupt termination of the distal common bile duct approximately 8 mm proximal to the ampulla of Vater. There is no intrapancreatic ductal dilatation. There is no discernible focal pancreatic mass or focal area of abnormal enhancement. There is no peripancreatic adenopathy. There is mild splenomegaly. There is no para-aortic adenopathy. There is a 3 cm sized cyst in the right kidney which was seen on prior imaging studies. There is no abnormal enhancement, septations, or mural nodules. There are no abnormal enhancing hepatic lesions. There is no adrenal gland abnormality. There is no intrahepatic ductal dilatation. The cortical and marrow signal seen throughout the imaged osseous structures is within normal limits. IMPRESSION: Abrupt termination of the distal common bile duct as described above. The finding in and of itself is somewhat concerning. Follow-up with conventional ERCP is recommended. <Electronically signed by Arnoldo Zuluaga > 09/28/20 0179
== END ==
LOC: M RAD 16:16
PROVIDERS: ATTEND Internal Medicine Gastroenterology
DX: K83.8 Other specified diseases of biliary tract (principal); D50.0 Iron deficiency anemia secondary to blood loss (chronic); R16.1 Splenomegaly, not elsewhere classified; N28.1 Cyst of kidney, acquired
CPT/HCPCS: 74183; A9576

== ENCOUNTER → 2020-10-21 | Outpatient (REF) | payer OTHER ==
[~2020-10-21] MED LIST changes: -PROHANCE 279.3MG/ML 15ML VIAL As Ordered ONE; -PROHANCE 279.3MG/ML 5ML VIAL As Ordered ONE
[2020-10-21 17:25] LABS: INR 1.05; PROTHROMBIN TIME 13.9 SECONDS (12.5-14.3)
[2020-10-21 17:26] LABS: PARTIAL THROMBOPLASTIN TIME 30.6 SECONDS (24.2-38.5)
== END ==
LOC: M LAB REF 16:41
PROVIDERS: ATTEND Internal Medicine
DX: K74.69 Other cirrhosis of liver (principal)

== ENCOUNTER → 2020-11-15 | Outpatient (REF) | payer OTHER | LOC: M LAB REF 11:25 | PROVIDERS: ATTEND Internal Medicine | DX: K75.81 Nonalcoholic steatohepatitis (NASH) (principal) ==

== ENCOUNTER → 2020-12-10 | Outpatient (REF) | payer OTHER | LOC: M LAB REF 11:02 | PROVIDERS: ATTEND Internal Medicine | DX: K75.81 Nonalcoholic steatohepatitis (NASH) (principal) ==

== ENCOUNTER → 2020-12-24 | Outpatient (CLI) | payer OTHER ==
--- NOTE | 2020-12-24 09:16 | REP ---
INDICATION: ABN LFT'D, EVAL FOR PORTAL HTN. COMPARISON: 04/19/2020. TECHNIQUE: Real-time sonographic evaluation of ABDOMEN PERFORMED, WITH DUPLEX DOPPLER EVALUATION OF PORTAL VASCULATURE. FINDINGS: There has been a prior cholecystectomy. There is no intrahepatic or extrahepatic biliary dilatation, common bile duct measures 6 mm in maximum diameter. Liver demonstrates diffuse heterogeneous increased echotexture compatible with diffuse fibrofatty infiltration, with no gross mass. The liver is enlarged measuring 20.3 cm in length. Visualized pancreas is grossly unremarkable, not optimally seen due to overlying bowel gas particularly in the region of the pancreatic tail. The spleen is enlarged measuring 14.0 x 13.9 x 5.3 cm, splenic index 1031. There is no hydronephrosis bilaterally. There is a cyst in the mid right kidney 3 cm in diameter. Mild bilateral cortical thinning. The right kidney measures 10.5 x 4.6 x 3.8 cm. Left renal dimensions are 10.4 x 4.5 x 4.1 cm. The visualized abdominal aorta is normal in caliber with no aneurysm. The distal abdominal aorta could not be visualized. No free fluid is seen. The main portal vein measures 12 mm in diameter. The splenic vein and portal veins demonstrate normal direction of flow, with normal flow velocities and waveforms. There is no portal vein thrombosis. Hepatic veins are patent with no thrombus. The hepatic venous waveforms suggest possible minimal tricuspid regurgitation. Patent main hepatic artery demonstrates peak systolic velocity of 84.3 centimeters/second. Velocity in the main portal vein is 22.4 centimeter/second. IMPRESSION: Status post cholecystectomy. No biliary dilatation or free fluid. Hepatomegaly with diffuse fibrofatty infiltration of the liver, no gross mass. Splenomegaly. No duplex Doppler sonographic evidence of portal venous hypertension. Portal vasculature demonstrates normal direction of flow with no thrombosis. No evidence of hepatic vein thrombosis. <Electronically signed by Allan Barcenas > 12/24/20 [id number]
== END ==
LOC: M RAD 08:11
PROVIDERS: ATTEND Internal Medicine
DX: K75.81 Nonalcoholic steatohepatitis (NASH) (principal); R74.8 Abnormal levels of other serum enzymes; R16.2 Hepatomegaly with splenomegaly, not elsewhere classified

== ENCOUNTER → 2021-01-04 | Outpatient (REF) | payer OTHER ==
[2021-01-05 13:12] LABS: PERCENT SATURATION 5.2 % (13.2-45.0)
== END ==
LOC: M LAB REF 12:22
PROVIDERS: ATTEND Internal Medicine
DX: D64.9 Anemia, unspecified (principal)

== ENCOUNTER → 2021-01-20 | Outpatient (REF) | payer OTHER ==
[~2021-01-20] MED LIST changes: -IBUP200T45 PO; +IBUP200T46 PO
== END ==
LOC: M SFHCWAGY 14:59
PROVIDERS: ATTEND Nurse Practitioner Women's Health
DX: N95.2 Postmenopausal atrophic vaginitis (principal); Z12.4 Encounter for screening for malignant neoplasm of cervix

== ENCOUNTER → 2021-01-20 | Outpatient (CLI) | payer OTHER ==
--- NOTE | 2021-01-20 15:09 | REP ---
INDICATION: SCR MAMMO. COMPARISON: None. TECHNIQUE: MLO and CC views bilateral breasts with tomosynthesis. FINDINGS: Mild scattered fibroglandular tissue is present bilaterally. A smoothly marginated 6-7 mm nodule is seen centrally in the left breast approximately 12 cm behind the nipple. No other mass is seen. No clustered microcalcifications are seen. The Volpara volumetric breast density pattern is A. IMPRESSION: BIRADS/ACR category 0, incomplete. Centrally in left breast there is a 6-7 mm nodule which is smoothly marginated and oval in shape. Recommend spot compression views and ultrasound to further evaluate. This patient's Tyrer-Cuzick lifetime breast cancer risk assessment score is 11.4%. This mammogram was interpreted with the aid of an FDA-approved computer-aided detection system. The patient states she had a clinical breast exam in December 2020. The patient letter being requested is M0. RECOMMENDATION: Recommend spot compression views and ultrasound left breast as discussed above. <Electronically signed by Allan Barcenas > 01/20/21 4721
== END ==
LOC: M WHC 12:33
PROVIDERS: ATTEND Nurse Practitioner Women's Health
DX: Z12.31 Encounter for screening mammogram for malignant neoplasm of breast (principal); N63.20 Unspecified lump in the left breast, unspecified quadrant

== ENCOUNTER → 2021-02-02 | Outpatient (CLI) | payer OTHER ==
--- NOTE | 2021-02-02 15:38 | REP ---
INDICATION: LEFT BREAST ADD VIEWS. COMPARISON: 01/20/2021. TECHNIQUE: Spot-compression tomographic sequences are obtained. Focused left breast ultrasound. FINDINGS: A smoothly marginated lobulated nodule at 12 o'clock is confirmed, measuring about 6 mm in diameter. It is located approximately 12-13 cm from the nipple. Focused left breast ultrasound demonstrates a lobulated hypoechoic nodule. This could represent a complex cyst or solid nodule. It measures 5 x 4 x 3 mm, with average KP a value 32.0 with elastography interrogation. IMPRESSION: BIRADS/ACR 4, suspicious. Lobulated nodule 12-1 o'clock region left breast approximately 5 mm in diameter. This may represent a complex cyst or solid nodule. Recommend ultrasound-guided biopsy. Recommend postprocedure mammogram left breast. This mammogram was interpreted with the aid of an FDA-approved computer-aided detection system. The patient letter being requested is M4. RECOMMENDATION: Recommend ultrasound-guided biopsy left breast nodule as discussed above. <Electronically signed by Allan Barcenas > 02/02/21 [id number]
== END ==
LOC: M WHC 13:32
PROVIDERS: ATTEND Nurse Practitioner Women's Health
DX: N63.20 Unspecified lump in the left breast, unspecified quadrant (principal)
CPT/HCPCS: 76642; 77065; G0279

== ENCOUNTER → 2021-02-21 | Outpatient (CLI) | payer OTHER ==
--- NOTE | 2021-02-21 09:42 | REP ---
INDICATION: SOB COMPARISON: 10/20/2019 TECHNIQUE: PA and lateral. FINDINGS: The mediastinum and cardiac silhouette are normal. The lung moreno are clear and without acute consolidation, effusion, or pneumothorax. The skeletal structures are intact and normal. IMPRESSION: No acute cardiopulmonary process. <Electronically signed by Axel Gonzalez > 02/21/21 0914
== END ==
LOC: M RAD 09:16
PROVIDERS: ATTEND Internal Medicine
DX: R06.02 Shortness of breath (principal)

== ENCOUNTER → 2021-02-23 | Outpatient (CLI) | payer OTHER ==
[~2021-02-23] MED LIST changes: +ACET325C5 PO; +BIOTCAP PO; +GNP250TA9 PO; +IRON240T PO; +METF500T13 PO; +OMEP40CA4 PO; +SUPECAP7 PO; +VITA400C53 PO; +VITMTA PO; +ZINC1TAB2 PO; +[UNRECOGNIZED DRUG - CODE] PO
--- NOTE | 2021-02-23 10:15 | REP ---
INDICATION: LEFT AXILLA PALPABLE LYMPH NODE COMPARISON: None TECHNIQUE: Realtime grayscale ultrasound examination using linear high-frequency transducer. FINDINGS: Ultrasound examination of the left axilla demonstrates multiple nonspecific lymph nodes, the largest of which measure 25 x 13 x 25 and 29 x 11 x 15 mm demonstrating thin cortex which may reflect underlying inflammatory change. IMPRESSION: Nonspecific axillary lymph nodes. <Electronically signed by Axel Gonzalez > 02/23/21 1018
--- NOTE | 2021-02-25 18:25 | ROOPDOC ---
[facility] Report Of Operation Report of Operation DATE OF PROCEDURE: 02/23/21 DIAGNOSIS: left breast suspicious lesion PROCEDURE: ultrasound guided biopsy of the left breast suspicious lesion with clip placement and partial aspiration of the lesion SURGEON: Soni Koenig BLOOD LOSS: minimal COMPLICATIONS: none Lidocaine 1% LOT [id number] Expiration 07/2024 Sodium Bicarbonate 8.4% LOT [id number] Expiration 05/2021 Hydromark clip LOT [id number] Expiration 07/2023 SHAPE: 4 Bx device: BARD [id number] x10 cm LOT [id number] Expiration 12/2023 Informed consent was obtained. The most common risk and possible complications including bleeding, hematoma, bruising, infection, injury to surrounding structures were explained to the patient and the patient expressed understanding. Patient was placed on the bed in the supine position. Appropriate time out was done stating patients name, date of , and the procedure to be performed. The left breast was prepped and draped in the usual fashion. The ultrasound was used to confirm the location of the lesion in the left breast at 1:00 12 centimeters from the nipple. Plain Lidocaine 1% and 8.4% sodium bicarbonate 10:1 mix was used to anesthetize the skin, the biopsy site and tissues along the anticipated biopsy tract. An attempt was made to aspirate the lesion with 18 G needle. The images were captured. Part of the lesion was aspirated, however, there was still remaining target in place post aspiration. The 0.5 cc of fluid was removed and sent to pathology for evaluation. At this time, decision was made to proceed with the biopsy of remaining target. Small skin incision was made with blade number 11. BARD Marquee 14G cannula with introducer ([id number]) was inserted through the incision and advanced under the ultrasound guidance to position immediately adjacent to the lesion. Next, the introducer was removed and BARD Marquee 14G biopsy device was places in the cannula. Pre-biopsy imaging, and post-biopsy imaging were captured. Five good core biopsies were taken at various levels of the lesion. Specimen was placed in formaldehyde, labeled with appropriate biopsy site and patients name, and sent to pathology for evaluation. Next, the biopsy device was withdrawn and a clip introducer was inserted into the biopsy site via the cannula. SHAPE 4 Hydromark clip was deployed under sonographic guidance. Post-clip placement image was captured. Manual pressure over the biopsy cavity and tract was held after the clip introducer was withdrawn. No bleeding was noted upon removal of the pressure. Post-biopsy mammogram of the left breast was obtained and showed clip in e xpected position. Postprocedural dressing was placed. Patient tolerated procedure well. Discharge instructions were discussed with the patient and the patient expressed understanding. SONI KOENIG DO Feb 25, 2021 18:24
== END ==
LOC: M WHC 07:36
PROVIDERS: ATTEND Surgery
DX: R59.0 Localized enlarged lymph nodes (principal)

== ENCOUNTER → 2021-02-23 | Outpatient (CLI) | payer OTHER ==
[2021-02-23 09:29] VITALS: BP 144/84
--- NOTE | 2021-02-25 18:25 | ROOPDOC ---
[facility] Report Of Operation Report of Operation DATE OF PROCEDURE: 02/23/21 DIAGNOSIS: left breast suspicious lesion PROCEDURE: ultrasound guided biopsy of the left breast suspicious lesion with clip placement and partial aspiration of the lesion SURGEON: Soni Koenig BLOOD LOSS: minimal COMPLICATIONS: none Lidocaine 1% LOT [id number] Expiration 07/2024 Sodium Bicarbonate 8.4% LOT [id number] Expiration 05/2021 Hydromark clip LOT [id number] Expiration 07/2023 SHAPE: 4 Bx device: BARD [id number] x10 cm LOT [id number] Expiration 12/2023 Informed consent was obtained. The most common risk and possible complications including bleeding, hematoma, bruising, infection, injury to surrounding structures were explained to the patient and the patient expressed understanding. Patient was placed on the bed in the supine position. Appropriate time out was done stating patients name, date of , and the procedure to be performed. The left breast was prepped and draped in the usual fashion. The ultrasound was used to confirm the location of the lesion in the left breast at 1:00 12 centimeters from the nipple. Plain Lidocaine 1% and 8.4% sodium bicarbonate 10:1 mix was used to anesthetize the skin, the biopsy site and tissues along the anticipated biopsy tract. An attempt was made to aspirate the lesion with 18 G needle. The images were captured. Part of the lesion was aspirated, however, there was still remaining target in place post aspiration. The 0.5 cc of fluid was removed and sent to pathology for evaluation. At this time, decision was made to proceed with the biopsy of remaining target. Small skin incision was made with blade number 11. BARD Marquee 14G cannula with introducer ([id number]) was inserted through the incision and advanced under the ultrasound guidance to position immediately adjacent to the lesion. Next, the introducer was removed and BARD Marquee 14G biopsy device was places in the cannula. Pre-biopsy imaging, and post-biopsy imaging were captured. Five good core biopsies were taken at various levels of the lesion. Specimen was placed in formaldehyde, labeled with appropriate biopsy site and patients name, and sent to pathology for evaluation. Next, the biopsy device was withdrawn and a clip introducer was inserted into the biopsy site via the cannula. SHAPE 4 Hydromark clip was deployed under sonographic guidance. Post-clip placement image was captured. Manual pressure over the biopsy cavity and tract was held after the clip introducer was withdrawn. No bleeding was noted upon removal of the pressure. Post-biopsy mammogram of the left breast was obtained and showed clip in e xpected position. Postprocedural dressing was placed. Patient tolerated procedure well. Discharge instructions were discussed with the patient and the patient expressed understanding. SONI KOENIG DO Feb 25, 2021 18:24
== END ==
LOC: M WHCPRO 07:25
PROVIDERS: ATTEND Surgery
DX: D24.2 Benign neoplasm of left breast (principal); R59.9 Enlarged lymph nodes, unspecified; R92.8 Other abnormal and inconclusive findings on diagnostic imaging of breast
CPT/HCPCS: 10005; 19083; 77065; 88173; 88305; G0279

== ENCOUNTER → 2021-03-24 | Outpatient (REF) | payer OTHER ==
[2021-03-24 18:33] LABS: PERCENT SATURATION 3.4 % (13.2-45.0)
== END ==
LOC: M LAB REF 17:16
PROVIDERS: ATTEND Internal Medicine Nephrology
DX: D50.9 Iron deficiency anemia, unspecified (principal)

== ENCOUNTER 2021-04-05 09:36 | Outpatient (CLI) | payer OTHER ==
[~2021-04-05] VITALS: Ht 152.4 cm; Wt 91.0 kg
[~2021-04-05 09:36] MED LIST changes: +ALBUTEROL SULFATE 2.5 MG/0.5 ML INH NEB SOLN INH PRN; +EPINEPHrine INJ 1 MG/ML 1ML AMP IM PRN; +FERRIC CARBOXYMALTOSE INJ 750 MG, VIAL MATE ADAPTER 1 EACH in NS 250 ML IV ONE; +NS 1,000 ML IV SCH; +diphenhydrAMINE 50MG/ML VIAL (J1200) IV PRN; +methylPREDNISolone 125MG 2ML VIAL IV PRN
[2021-04-05 09:55] VITALS: BP 146/85
[2021-04-05] MEDS ORDERED: DULO1CAP5 (10:13)
[2021-04-05] MEDS ORDERED: OMEP-221 (10:13)
[2021-04-05 12:00] VITALS: BP 147/77
== END 2021-04-05 12:00 | disposition home or self-care (01) ==
LOC: M INFU 09:36
PROVIDERS: ATTEND Internal Medicine Nephrology
DX: D50.9 Iron deficiency anemia, unspecified (principal); Z88.2 Allergy status to sulfonamides; Z88.8 Allergy status to other drugs, medicaments and biological substances
CPT/HCPCS: 96365; 96366; J1439

== ENCOUNTER 2021-04-12 09:09 | Outpatient (CLI) | payer OTHER ==
[~2021-04-12] VITALS: Ht 152.4 cm; Wt 91.0 kg
[~2021-04-12 09:09] MED LIST changes: +DULO1CAP5; -FERRIC CARBOXYMALTOSE INJ 750 MG, VIAL MATE ADAPTER 1 EACH in NS 250 ML IV ONE; -NS 1,000 ML IV SCH; +OMEP-221
[2021-04-12] MEDS ORDERED: FERRIC CARBOXYMALTOSE INJ 750 MG, VIAL MATE ADAPTER 1 EACH in NS 250 ML IV ONE (09:30)
[2021-04-12] MEDS ORDERED: NS 1,000 ML IV SCH (09:30)
[2021-04-12 09:43] VITALS: BP 140/75
[2021-04-12 10:55] VITALS: BP 147/85
== END 2021-04-12 10:55 | disposition home or self-care (01) ==
LOC: M INFU 09:09
PROVIDERS: ATTEND Internal Medicine Nephrology
DX: D50.9 Iron deficiency anemia, unspecified (principal); Z88.2 Allergy status to sulfonamides; Z88.8 Allergy status to other drugs, medicaments and biological substances
CPT/HCPCS: 96365; J1439

== ENCOUNTER → 2021-08-01 | Outpatient (CLI) | payer OTHER ==
[~2021-08-01] MED LIST changes: -ALBUTEROL SULFATE 2.5 MG/0.5 ML INH NEB SOLN INH PRN; -EPINEPHrine INJ 1 MG/ML 1ML AMP IM PRN; -OMEP-221; +OMEP40CA5; -diphenhydrAMINE 50MG/ML VIAL (J1200) IV PRN; -methylPREDNISolone 125MG 2ML VIAL IV PRN
== END ==
LOC: M WHC 10:05
PROVIDERS: ATTEND Surgery
DX: R92.8 Other abnormal and inconclusive findings on diagnostic imaging of breast (principal); N63.20 Unspecified lump in the left breast, unspecified quadrant
CPT/HCPCS: 76642; 77065; G0279

== ENCOUNTER → 2021-09-21 | Outpatient (REF) | payer OTHER ==
[2021-09-21 18:35] LABS: PERCENT SATURATION 4.7 % (13.2-45.0)
== END ==
LOC: M LAB REF 17:08
PROVIDERS: ATTEND Internal Medicine Nephrology
DX: D50.9 Iron deficiency anemia, unspecified (principal)

== ENCOUNTER → 2021-10-06 | Outpatient (REF) | payer OTHER | LOC: M LAB REF 16:10 | PROVIDERS: ATTEND Internal Medicine | DX: N39.0 Urinary tract infection, site not specified (principal); N76.0 Acute vaginitis ==

== ENCOUNTER → 2021-11-14 | Outpatient (REF) | payer OTHER ==
[2021-11-15 18:08] LABS: PERCENT SATURATION 6.8 % (13.2-45.0)
== END ==
LOC: M LAB REF 16:30
PROVIDERS: ATTEND Internal Medicine
DX: D50.9 Iron deficiency anemia, unspecified (principal)

== ENCOUNTER → 2021-11-22 | Outpatient (CLI) | payer OTHER | LOC: M RAD 09:16 | PROVIDERS: ATTEND Internal Medicine Gastroenterology | DX: K76.0 Fatty (change of) liver, not elsewhere classified (principal); R16.1 Splenomegaly, not elsewhere classified; Z90.49 Acquired absence of other specified parts of digestive tract; R10.9 Unspecified abdominal pain; D50.0 Iron deficiency anemia secondary to blood loss (chronic); R63.5 Abnormal weight gain; K75.81 Nonalcoholic steatohepatitis (NASH); R53.83 Other fatigue; R13.10 Dysphagia, unspecified; I85.00 Esophageal varices without bleeding ==

== ENCOUNTER 2021-11-30 12:09 | Outpatient (CLI) | payer OTHER ==
[~2021-11-30 12:09] MED LIST changes: +ALBUTEROL SULFATE 2.5 MG/0.5 ML INH NEB SOLN INH PRN; +EPINEPHrine INJ 1 MG/ML 1ML AMP IM PRN; +diphenhydrAMINE 50MG/ML VIAL (J1200) IV PRN; +methylPREDNISolone 125MG 2ML VIAL IV PRN
[2021-11-30 12:15] VITALS: BP 141/80
[2021-11-30] MEDS ORDERED: NS 1,000 ML IV SCH (12:30)
[2021-11-30] MEDS ORDERED: FERRIC CARBOXYMALTOSE INJ 750 MG in NS 250 ML (>50kg) IV ONE ×3 (12:30)
[2021-11-30] MEDS ORDERED: TRUL0.5I SC (12:42)
[2021-11-30 13:55] VITALS: BP 126/70
== END 2021-11-30 13:55 | disposition home or self-care (01) ==
LOC: M INFU 12:09
PROVIDERS: ATTEND Internal Medicine Nephrology
DX: D50.9 Iron deficiency anemia, unspecified (principal); Z88.2 Allergy status to sulfonamides; Z88.8 Allergy status to other drugs, medicaments and biological substances
CPT/HCPCS: 96365; J1439

== ENCOUNTER 2021-12-07 12:30 | Outpatient (CLI) | payer OTHER ==
[~2021-12-07] VITALS: Ht 152.4 cm; Wt 90.0 kg
[2021-12-07 12:30] VITALS: BP 131/80
[~2021-12-07 12:30] MED LIST changes: +FERRIC CARBOXYMALTOSE INJ 750 MG in NS 250 ML (>50kg) IV ONE; +NS 1,000 ML IV SCH; +TRUL0.5I SC
[2021-12-07 14:00] VITALS: BP 119/75
== END 2021-12-07 14:00 | disposition home or self-care (01) ==
LOC: M INFU 12:30
PROVIDERS: ATTEND Internal Medicine Nephrology
DX: D50.9 Iron deficiency anemia, unspecified (principal); Z88.2 Allergy status to sulfonamides; Z88.8 Allergy status to other drugs, medicaments and biological substances
CPT/HCPCS: 96365; J1439

== ENCOUNTER → 2022-02-13 | Outpatient (REF) | payer OTHER, MEDICAID ==
[~2022-02-13] MED LIST changes: -ALBUTEROL SULFATE 2.5 MG/0.5 ML INH NEB SOLN INH PRN; -EPINEPHrine INJ 1 MG/ML 1ML AMP IM PRN; -FERRIC CARBOXYMALTOSE INJ 750 MG in NS 250 ML (>50kg) IV ONE; -NS 1,000 ML IV SCH; -diphenhydrAMINE 50MG/ML VIAL (J1200) IV PRN; -methylPREDNISolone 125MG 2ML VIAL IV PRN
== END ==
LOC: M LAB REF 16:23
PROVIDERS: ATTEND Internal Medicine
DX: D50.9 Iron deficiency anemia, unspecified (principal)

== ENCOUNTER → 2022-02-15 | Outpatient (CLI) | payer OTHER | LOC: M WHC 13:53 | PROVIDERS: ATTEND Advanced Practice Midwife | DX: Z12.31 Encounter for screening mammogram for malignant neoplasm of breast (principal) ==

== ENCOUNTER → 2022-05-03 | Outpatient (CLI) | payer OTHER | LOC: M RAD 10:50 → M LAB 10:50 | PROVIDERS: ATTEND Anesthesiology | DX: R10.9 Unspecified abdominal pain (principal); M47.814 Spondylosis without myelopathy or radiculopathy, thoracic region ==

== ENCOUNTER → 2022-05-03 | Outpatient (CLI) | payer OTHER | LOC: M PAIN 09:00 | PROVIDERS: ATTEND Anesthesiology | DX: R10.9 Unspecified abdominal pain (principal); M79.2 Neuralgia and neuritis, unspecified; E11.9 Type 2 diabetes mellitus without complications; Z88.2 Allergy status to sulfonamides; Z88.8 Allergy status to other drugs, medicaments and biological substances; Z79.84 Long term (current) use of oral hypoglycemic drugs; Z79.85 Long-term (current) use of injectable non-insulin antidiabetic drugs; Z79.899 Other long term (current) drug therapy ==

== ENCOUNTER → 2022-09-26 | Outpatient (CLI) | payer OTHER | LOC: M PAIN 15:00 | PROVIDERS: ATTEND Anesthesiology | DX: R10.9 Unspecified abdominal pain (principal); M79.18 Myalgia, other site; Z87.19 Personal history of other diseases of the digestive system; E11.9 Type 2 diabetes mellitus without complications; D50.9 Iron deficiency anemia, unspecified; Z88.2 Allergy status to sulfonamides; Z88.8 Allergy status to other drugs, medicaments and biological substances; Z79.84 Long term (current) use of oral hypoglycemic drugs; Z79.85 Long-term (current) use of injectable non-insulin antidiabetic drugs; Z79.899 Other long term (current) drug therapy ==

== ENCOUNTER → 2022-11-24 | Outpatient (REF) | payer OTHER, MEDICAID | LOC: M LAB REF 16:33 | PROVIDERS: ATTEND Internal Medicine | DX: Z11.59 Encounter for screening for other viral diseases (principal) ==

== ENCOUNTER → 2023-04-25 | Outpatient (REF) | payer MEDICARE ==
[2023-04-26 13:24] LABS: FERRITIN 7.6 NG/ML (7.3-270.7)
== END ==
LOC: M LAB REF 12:23
PROVIDERS: ATTEND Internal Medicine
DX: D50.9 Iron deficiency anemia, unspecified (principal)

== ENCOUNTER → 2023-08-06 | Outpatient (REF) | payer MEDICARE | LOC: M LAB REF 12:50 | PROVIDERS: ATTEND Internal Medicine | DX: D32.0 Benign neoplasm of cerebral meninges (principal) ==

== ENCOUNTER → 2023-09-21 | Outpatient (REF) | payer MEDICARE ==
[2023-09-21 18:17] LABS: PERCENT SATURATION 5.9 % (13.2-45.0)
== END ==
LOC: M LAB REF 17:14
PROVIDERS: ATTEND Internal Medicine Nephrology
DX: D50.9 Iron deficiency anemia, unspecified (principal)

== ENCOUNTER 2023-10-16 10:23 | Outpatient (CLI) | payer MEDICARE ==
[~2023-10-16] VITALS: Ht 157.5 cm; Wt 86.3 kg
[~2023-10-16 10:23] MED LIST changes: +ALBUTEROL SULFATE 2.5MG/0.5ML INH NEB SOLN INH PRN; +EPINEPHrine INJ 1 MG/ML 1ML AMP IM PRN; +NS 1,000 ML IV SCH; +diphenhydrAMINE 50MG/ML VIAL IV PRN; +methylPREDNISolone 125MG 2ML VIAL IV PRN
[2023-10-16 11:00] VITALS: BP 143/73; O2SAT 97
[2023-10-16] MEDS: IRON SUCROSE 25 MG in NS 23.75 ML IV ONE (11:58)
[2023-10-16 13:00] VITALS: BP 145/80; O2SAT 98
[2023-10-16] MEDS: IRON SUCROSE 375 MG in NS 250 ML IV ONE (13:03)
[2023-10-16 14:00] VITALS: BP 140/81; O2SAT 98
== END 2023-10-16 16:00 ==
LOC: M INFU 10:23
PROVIDERS: ATTEND Internal Medicine Nephrology
DX: D50.9 Iron deficiency anemia, unspecified (principal); Z88.2 Allergy status to sulfonamides; Z88.8 Allergy status to other drugs, medicaments and biological substances
CPT/HCPCS: 96365; 96366; J1756

== ENCOUNTER 2023-10-30 10:00 | Outpatient (CLI) | payer MEDICARE ==
[~2023-10-30] VITALS: Ht 157.5 cm; Wt 83.6 kg
[2023-10-30 10:00] VITALS: BP 134/77; O2SAT 97
[2023-10-30] MEDS: IRON SUCROSE 400 MG in NS 250 ML OVER 2.5 HRS IV ONE (10:13)
[2023-10-30 13:00] VITALS: BP 134/70; O2SAT 97
== END 2023-10-30 13:00 ==
LOC: M INFU 10:00
PROVIDERS: ATTEND Internal Medicine Nephrology
DX: D50.9 Iron deficiency anemia, unspecified (principal); Z88.2 Allergy status to sulfonamides; Z88.8 Allergy status to other drugs, medicaments and biological substances
CPT/HCPCS: 96365; 96366; J1756

== ENCOUNTER → 2024-03-18 | Outpatient (REF) | payer MEDICARE ==
[~2024-03-18] MED LIST changes: -ALBUTEROL SULFATE 2.5MG/0.5ML INH NEB SOLN INH PRN; -EPINEPHrine INJ 1 MG/ML 1ML AMP IM PRN; -NS 1,000 ML IV SCH; -diphenhydrAMINE 50MG/ML VIAL IV PRN; -methylPREDNISolone 125MG 2ML VIAL IV PRN
== END ==
LOC: M LAB REF 13:14
PROVIDERS: ATTEND Internal Medicine
DX: D32.0 Benign neoplasm of cerebral meninges (principal); K75.81 Nonalcoholic steatohepatitis (NASH)

== ENCOUNTER → 2024-04-18 | Outpatient (CLI) | payer MEDICARE | LOC: M RAD 08:50 | PROVIDERS: ATTEND Internal Medicine | DX: K70.30 Alcoholic cirrhosis of liver without ascites (principal); K59.00 Constipation, unspecified ==

== ENCOUNTER → 2024-05-15 | Outpatient (CLI) | payer MEDICARE | LOC: M WHC 13:31 | PROVIDERS: ATTEND Internal Medicine | DX: Z13.820 Encounter for screening for osteoporosis (principal); M81.0 Age-related osteoporosis without current pathological fracture; M85.851 Other specified disorders of bone density and structure, right thigh ==

== ENCOUNTER → 2024-06-13 | Outpatient (CLI) | payer MEDICARE | LOC: M WHC 06:36 | PROVIDERS: ATTEND Internal Medicine | DX: K76.0 Fatty (change of) liver, not elsewhere classified (principal); R16.1 Splenomegaly, not elsewhere classified; I87.8 Other specified disorders of veins ==

== ENCOUNTER 2024-07-25 16:17 | Outpatient (CLI) | payer MEDICARE ==
[~2024-07-25] VITALS: Ht 154.9 cm; Wt 86.3 kg
[2024-07-25 16:20] VITALS: BP 131/73; O2SAT 95
[2024-07-25] MEDS: ZOLEDRONIC ACID 5 MG in IV 1 EA IV ONE (16:26)
[2024-07-25 17:05] VITALS: BP 143/78; O2SAT 97
== END 2024-07-25 17:14 | disposition home or self-care (01) ==
LOC: M INFU 16:17
PROVIDERS: ATTEND Internal Medicine
DX: M81.0 Age-related osteoporosis without current pathological fracture (principal); Z88.2 Allergy status to sulfonamides; Z88.8 Allergy status to other drugs, medicaments and biological substances
CPT/HCPCS: 96413; J3489

== ENCOUNTER → 2024-08-19 | Outpatient (CLI) | payer MEDICARE ==
[~2024-08-19] MED LIST changes: +BIOT5CAP9 PO; -BIOTCAP PO; +[UNRECOGNIZED DRUG - CODE] PO; -[UNRECOGNIZED DRUG - CODE] PO
== END ==
LOC: M RAD 16:40
PROVIDERS: ATTEND Internal Medicine
DX: R06.09 Other forms of dyspnea (principal); M47.9 Spondylosis, unspecified

== ENCOUNTER → 2024-10-07 | Outpatient (REF) | payer MEDICARE | LOC: M LAB REF 08:40 | PROVIDERS: ATTEND Internal Medicine | DX: K75.81 Nonalcoholic steatohepatitis (NASH) (principal); K74.69 Other cirrhosis of liver ==

== ENCOUNTER → 2024-10-24 | Outpatient (CLI) | payer MEDICARE | LOC: M RAD 08:06 | PROVIDERS: ATTEND Psychiatry & Neurology Psychiatry | DX: R18.8 Other ascites (principal) ==

== ENCOUNTER → 2024-11-19 | Outpatient (CLI) | payer MEDICARE | LOC: M WHC 14:43 | PROVIDERS: ATTEND Nurse Practitioner Family | DX: Z12.31 Encounter for screening mammogram for malignant neoplasm of breast (principal) ==

== ENCOUNTER → 2024-11-19 | Outpatient (REF) | payer MEDICARE ==
[2024-11-21 15:23] LABS: HPV APTIMA Not Detected (Not Detected)
== END ==
LOC: M SFHCWAGY 17:33
PROVIDERS: ATTEND Nurse Practitioner Family
DX: Z12.4 Encounter for screening for malignant neoplasm of cervix (principal); Z11.51 Encounter for screening for human papillomavirus (HPV)
CPT/HCPCS: 87624; G0123

== ENCOUNTER → 2024-12-03 | Outpatient (CLI) | payer MEDICARE ==
[2024-12-03 14:47] LABS: ESTIMATED AVERAGE GLUCOSE 114.0 MG/DL (60-110)
[2024-12-03 15:01] LABS: ALT/SGPT 25 U/L (7.0-40); AST/SGOT 38 U/L (<34); CALCIUM LEVEL 9.3 MG/DL (8.3-10.6); CARBON DIOXIDE LEVEL 23 MMOL/L (20-31); CHLORIDE LEVEL 108 MMOL/L (98-107); CREATININE FOR GFR 1.40 MG/DL (0.55-1.30); GLOMERULAR FILTRATION RATE 42.8 (>45); POTASSIUM SERUM 4.2 MMOL/L (3.5-5.1); SODIUM LEVEL 144 MMOL/L (136-145)
[2024-12-03 15:02] LABS: RHEUMATOID FACTOR QUANT < 3.5 IU/ML (<14)
[2024-12-03 15:03] LABS: FREE T4 0.93 NG/DL (0.89-1.76); VITAMIN B12 LEVEL 587 PG/ML (211-911)
[2024-12-03 15:13] LABS: BASO # 0.0 10^3/uL (0.0-0.2); BASO % 0.5 % (0.0-1.0); EOS # 0.2 10^3/uL (0.0-0.5); EOS % 3.2 % (0.0-3.0); LYMPH # 1.5 10^3/uL (1.5-5.0); LYMPH % 26.0 % (24.0-44.0); MONO # 0.5 10^3/uL (0.0-0.8); MONO % 8.0 % (2.0-8.0); NEUTROPHILS # 3.7 10^3/uL (1.5-8.5); NEUTROPHILS % 62.1 % (36.0-66.0); PLATELET COUNT, AUTOMATED 172 10^3/uL (150-450)
[2024-12-03 15:31] LABS: ERYTHROCYTE SEDIMENTATION RATE 30 mm/hr (0-30)
[2024-12-08 02:02] LABS: VITAMIN E(ALPHA TOCOPHEROL) 14.3 mg/L (5.7-19.9); VITAMIN E(GAMMA TOCOPHEROL) < 1.0 mg/L (<=4.3)
[2024-12-08 15:57] LABS: LYME TOTAL ANTIBODY CIA <= 0.90 Index (<=0.90)
[2024-12-09 17:07] LABS: VITAMIN B1 LEVEL WHOLE BLOOD 113 nmol/L (78-185)
== END ==
LOC: M LAB 12:42
PROVIDERS: ATTEND Psychiatry & Neurology Neurology
DX: E11.51 Type 2 diabetes mellitus with diabetic peripheral angiopathy without gangrene (principal); E53.8 Deficiency of other specified B group vitamins; E07.9 Disorder of thyroid, unspecified

== ENCOUNTER → 2025-01-23 | Outpatient (REF) | payer MEDICARE ==
[2025-01-23 12:31] LABS: INR 1.05
== END ==
LOC: M LAB REF 11:38
PROVIDERS: ATTEND Internal Medicine
DX: K74.69 Other cirrhosis of liver (principal)